=== PATIENT | male | born 1945 | race Caucasian/White ===

== ENCOUNTER 2019-04-14 01:58 | Inpatient (IN) ==
[2019-04-14] MEDS ORDERED: FAMOTIDINE 20MG/5ML IV PUSH IV STA (02:36)
[2019-04-14] MEDS ORDERED: ONDANSETRON INJ 2 MG/ML 2 ML VIAL IV STA (02:36)
[2019-04-14] MEDS ORDERED: fentaNYL citrate 100 MCG/2 ML VIAL IV PRN (02:36)
[2019-04-14] MEDS: SODIUM CHLORIDE 0.9% 1000ML 1,000 ML IV SCH ×3 (02:43→20:12)
[2019-04-14 02:52] LABS: Basophils # (auto) 0.01 K/uL (0-0.2); Basophils % (auto) 0.1 %; Eosinophils # (auto) 0.07 K/uL (0-0.5); Eosinophils % (auto) 0.7 %; Hematocrit (blood only) 43.2 % (42-52); Hemoglobin 14.9 g/dL (14.0-18.0); Immature Granulocytes # (auto) 0.02 K/uL (0.00-0.02); Immature Granulocytes % (auto) 0.2 %; Lymphocytes # (auto) 1.39 K/uL (1.2-3.4); Lymphocytes % (auto) 13.2 %; Mean Corpuscular Hgb Conc 34.5 g/dL (32-36); Mean Corpuscular Volume 84.2 fL (80-100); Monocytes # (auto) 0.47 K/uL (0.11-0.59); Monocytes % (auto) 4.5 %; Neutrophils # (auto) 8.56 K/uL (1.4-6.5); Neutrophils % (auto) 81.3 %; Platelet Count 161 K/uL (130-400); RDW Coefficient of Variation 13.4 % (11.5-14.5); RDW Standard Deviation 41.1 fL (36.4-46.3); Red Blood Count 5.13 M/uL (4.7-6.1); White Blood Count 10.52 K/uL (4.8-10.8)
[2019-04-14 03:00] LABS: Alanine Aminotransferase 27 U/L (12-78); Albumin Level 4.6 gm/dl (3.4-5.0); Aspartate Aminotransferase 21 U/L (15-37); BUN Creatinine Ratio 15.6 (10-20); Blood Urea Nitrogen 15 mg/dl (7-18); Calcium 9.3 mg/dl (8.5-10.1); Carbon Dioxide 34 mmol/L (21-32); Chloride 99 mmol/L (98-107); Creatinine Clr Calc Pharmacy 71.4 ml/min; Est GFR (African American) 87.7; Est GFR (Non-African American) 75.6; Glucose 224 mg/dl (70-99); Lipase 140 U/L (73-393); Magnesium 2.1 mg/dl (1.8-2.4); Potassium 3.6 mmol/L (3.5-5.1); Sodium 138 mmol/L (136-145)
[2019-04-14 03:05] LABS: Albumin Globulin Ratio 1.3 (0.9-2); Alkaline Phosphatase 97 U/L (45-117); Bilirubin,Total 1.2 mg/dl (0.2-1); Globulin 3.6 gm/dl (2.5-4.0); Total Protein 8.2 gm/dl (6.4-8.2); Troponin I < 0.015 ng/ml (0-0.045)
[2019-04-14] MEDS ORDERED: IOVERSOL 100ml IV PRN (03:43)
[2019-04-14] MEDS ORDERED: HydrALAZINE HCL 20 MG/ML VIAL IV STA (03:51)
[2019-04-14] MEDS ORDERED: MoRPHine SULFATE 4 MG/ML 1 ML CARP\\VIAL IV STA (06:37)
--- NOTE | 2019-04-14 06:45 | Emergency Department Note ---
Entered by Paulina Poole acting as a scribe for History of Present Illness General Chief complaint: Abdominal Pain Stated complaint: ABD PAIN, BACK PAIN Time Seen by Provider: 04/14/19 02:07 History of Present Illness Provider complaint: abdominal pain Onset (ago): hour(s) 8 Location: abdomen Radiation: back Pain Consistency: + constant Maximum Pain Intensity: 6 Quality: + other (abdominal pain) Relieved By: not by medication (Tums) Exacerbated By: + none Associated symptoms: + other (Positive hard bowel movements; postive bloated sensation; positive sour taste); no chest pain and no fever/chills Treatments prior to arrival: other (TUMS) The patient, who is a 73 year old male with a medical history of dyslipidemia, UGI bleed, and type 2 diabetes, presents to the Emergency Room with complaints of an episode of abdominal pain that started at 1700. The patient expresses that this pain is constant and radiates to his back. The patient explains that he did not feel better or worse when he was resting or sitting up. The patient reports having hard bowel movements but denies any other irregular bowel symptoms. No black or bloody stools. The patient states that prior to arrival he had a sour taste in his mouth. The patient expresses that he had a dosage of TUMS however this did not help. The patient denies chest pain and shortness of breath. The patient denies eating strange foods or a change in his medication. The patient states that he had a stomach ulcer 10 years ago but has not had a scope in years. Denies any recent increase in reflux/GERD symptoms. The patient denies taking any current medication for this. The patient states that he is on aspirin. No other anticoagulation. Patient denies paresthesias in arms or legs. No fevers or chills. No recent illness. Home Medications Home Medications Medication Instructions Recorded Confirmed Type Lantus Solostar U-100 Insulin 24 units SUBCUT BID 04/14/19 04/14/19 History alprazolam 0.25 mg PO TID PRN 04/14/19 04/14/19 History aspirin 81 mg PO DAILY 04/14/19 04/14/19 History carvedilol 25 mg PO BID 04/14/19 04/14/19 History clonidine HCl 0.1 mg PO Q6H PRN 04/14/19 04/14/19 History insulin aspart U-100 [Novolog 5 unit SUBCUT BID 04/14/19 04/14/19 History Flexpen U-100 Insulin] lisinopril-hydrochlorothiazide 2 tab PO DAILY 04/14/19 04/14/19 History potassium chloride 10 meq PO DAILY 04/14/19 04/14/19 History rosuvastatin 20 mg PO HS 04/14/19 04/14/19 History terazosin 5 mg PO DAILY 04/14/19 04/14/19 History Allergies Allergy/AdvReac Type Severity Reaction Status Date / Time No Known Allergies Allergy Unverified 04/14/19 02:29 Past Med/Surg History Medical History Abdominal pain (Acute) Acute cholecystitis (Acute) Bradyarrhythmia (Acute) Hypertensive heart disease (Chronic) Dyslipidemia (Chronic) Paroxysmal atrial tachycardia (Chronic) UGI bleed (Resolved) "Dieulafoy lesion of stomach" Diabetes mellitus, type 2 (Chronic) Paroxysmal ventricular tachycardia (Chronic) Patient is Spiritism (Chronic) "no blood products" Hypertension (Acute) Surgical History Status post cardiac pacemaker procedure (Chronic) "dual chamber pacemaker 03/09/16" Social History Preferred Language: Ukrainian Beliefs That Will Affect Care: Mandaen Mandaen Beliefs: jehovahs witness Current Living Situation: Spouse Other Information That Helps Us Care for You: No Feels Safe at Home: Yes Safety Concerns: Feels Safe At This Time Smoking Status: Never smoker Hx Alcohol Use: No Hx Substance Use: No Review of Systems See HPI for pertinent positives & negatives. and A total of 10 systems reviewed and were otherwise negative Physical Exam Vital Signs Vital Signs - 24 hr 04/14/19 03:38 04/14/19 04:10 04/14/19 04:22 Pulse Rate [Right] 65 61 75 Pulse Rhythm [Right] Pulse Strength [Right] Respiratory Rate 20 16 16 Respiratory Effort / Characteristics Non-Labored Spontaneous Non-Labored Respiratory Depth Normal Normal Normal Blood Pressure [Left Arm] 218/92 H 212/85 H 194/84 H Blood Pressure Mean [Left Arm] 134 127 120 Blood Pressure Position [Left Arm] Sitting Pulse Oximetry 98 97 97 Oxygen Delivery Method Room Air Room Air 04/14/19 04:43 04/14/19 05:36 04/14/19 06:07 Pulse Rate [Right] 71 75 78 Pulse Rhythm [Right] Regular Regular Pulse Strength [Right] Normal Normal Respiratory Rate 16 16 16 Respiratory Effort / Characteristics Non-Labored Spontaneous Non-Labored Spontaneous Non-Labored Spontaneous Respiratory Depth Normal Normal Normal Blood Pressure [Left Arm] 182/78 H 193/78 H 191/80 H Blood Pressure Mean [Left Arm] 112 116 117 Blood Pressure Position [Left Arm] Sitting Sitting Pulse Oximetry 98 97 97 Oxygen Delivery Method Room Air Room Air Room Air 04/14/19 07:02 Pulse Rate [Right] 76 Pulse Rhythm [Right] Pulse Strength [Right] Respiratory Rate 18 Respiratory Effort / Characteristics Non-Labored Spontaneous Respiratory Depth Normal Blood Pressure [Left Arm] 176/82 H Blood Pressure Mean [Left Arm] 113 Blood Pressure Position [Left Arm] Lying Pulse Oximetry 96 Oxygen Delivery Method Room Air GENERAL: alert, well appearing, well nourished, no distress, non-toxic EYE EXAM: normal conjunctiva, PERRL and EOM's grossly intact OROPHARYNX: no exudate, no erythema, lips, buccal mucosa, and tongue normal and mucous membranes are moist NECK: supple, no nuchal rigidity, no adenopathy, non-tender LUNGS: Clear to auscultation. Normal chest wall mechanics, no w/r/r HEART: no murmurs, S1 normal and S2 normal ABDOMEN: abdomen soft, non-tender, normo-active bowel sounds, no masses, no rebound or guarding. Mild discomfort to the epigastric with palpation, dull to percussion BACK: Back is symmetrical on inspection and there is no deformity, no midline tenderness, no CVA tenderness. SKIN: no rashes and no bruising UPPER EXTREMITIES: upper extremities are grossly normal. FROM, nml pulses b/l. LOWER EXTREMITIES: No pitting edema. FROM, nml pulses b/l. NEURO EXAM: Normal sensorium, cranial nerves II-XII grossly intact, normal speech, no gross weakness of arms, no gross weakness of legs. Course 0226: Past medical records reviewed. The patient was evaluated in room A10. A complete history and physical exam was performed. 0451: I reassessed the patient and updated him on his CT. I am waiting for his ultrasound results. 0635: I reassessed the patient who states that pain is present but improved. 0700: I discussed the case with Dr. Mcclure. He requests that the patient be admitted by the hospitalist and he will see in consult for surgery. 0712: I reviewed the patient's case with Malini Torres Hospitalist. He will evaluate the patient for further management. 0724: I reassessed the patient who agrees to be further evaluated by the hospitalist. Consultations Time: 07:00 Consultation #2: I reviewed the patient's case with Dr. Mcclure, general surgery. Time: 07:12 Administered Medications Alprazolam (Xanax) 0.25 mg PO TID PRN PRN Reason: Anxiety Stop: 05/14/19 16:40 Last Admin: 04/14/19 17:16 Dose: 0.25 mg Documented by: [id number] Carvedilol (Coreg) 25 mg PO BID DAVE Stop: 05/14/19 09:15 Last Admin: 04/14/19 21:19 Dose: 25 mg Documented by: [id number] Admin: 04/14/19 10:00 Dose: 25 mg Documented by: [id number] Lisinopril/HCTZ (Prinzide 20/12.5mg) 2 tab PO DAILY DAVE Stop: 05/14/19 09:15 Last Admin: 04/14/19 09:59 Dose: 2 tab Documented by: [id number] Sodium Chloride (Nss 1000ml) 1,000 mls @ 125 mls/hr IV .Q8H DAVE Stop: 05/14/19 02:44 Last Admin: 04/14/19 20:12 Dose: 125 mls/hr Documented by: [id number] Infusion: 04/14/19 17:42 Dose: 125 mls/hr Documented by: [id number] Admin: 04/14/19 09:42 Dose: 125 mls/hr Documented by: [id number] Infusion: 04/14/19 08:04 Dose: 0 mls/hr Documented by: [id number] Admin: 04/14/19 02:43 Dose: 125 mls/hr Documented by: [id number] Insulin Aspart (Novolog Flexpen) 0 units SC Q6 DAVE; Protocol Stop: 05/14/19 11:59 Last Admin: 04/15/19 00:45 Dose: Not Given Documented by: [id number] Cosigned by: [id number] Admin: 04/14/19 17:53 Dose: 5 units Documented by: [id number] Cosigned by: [id number] Admin: 04/14/19 12:12 Dose: 4 units Documented by: [id number] Cosigned by: [id number] Ioversol (Optiray 320 100ml) 100 ml IV ONCE PRN PRN Reason: Interaction Checking Stop: 04/18/19 03:42 Last Admin: 04/14/19 03:43 Dose: 93 ml Documented by: [id number] Potassium Chloride (Klor-Con M10) 10 meq PO DAILY DAVE Stop: 05/14/19 09:15 Last Admin: 04/14/19 10:00 Dose: 10 meq Documented by: [id number] Rosuvastatin Calcium (Crestor) 20 mg PO HS DAVE Stop: 05/14/19 20:59 Last Admin: 04/14/19 21:19 Dose: 20 mg Documented by: [id number] Terazosin HCl (Hytrin) 5 mg PO DAILY DAVE Stop: 05/14/19 09:15 Last Admin: 04/14/19 10:00 Dose: 5 mg Documented by: [id number] Discontinued Medications Famotidine (Pepcid 20mg Iv Push) 20 mg IV ONE STA Stop: 04/14/19 02:37 Last Admin: 04/14/19 02:42 Dose: 20 mg Documented by: [id number] Fentanyl Citrate (Fentanyl Citrate) 50 mcg IV Q15M PRN PRN Reason: Pain Stop: 04/28/19 02:35 Last Admin: 04/14/19 02:42 Dose: 100 mcg Documented by: [id number] Hydralazine HCl (Hydralazine Hcl) 10 mg IV NOW STA Stop: 04/14/19 03:52 Last Admin: 04/14/19 04:10 Dose: 10 mg Documented by: [id number] Potassium Chloride (K Britton / Wtr) 10 meq in 100 mls @ 100 mls/hr IV Q1H DAVE Stop: 04/14/19 11:15 Last Infusion: 04/14/19 12:21 Dose: 0 mls/hr Documented by: [id number] Admin: 04/14/19 10:58 Dose: 100 mls/hr Documented by: [id number] Infusion: 04/14/19 10:58 Dose: 100 mls/hr Documented by: [id number] Admin: 04/14/19 09:58 Dose: 100 mls/hr Documented by: [id number] Sincalide 1.8 mcg/ Sodium (Chloride) 101.8 mls @ 200 mls/hr IV TODAY@1400 DAVE Stop: 04/14/19 20:00 Last Admin: 04/14/19 15:16 Dose: Not Given Documented by: [id number] Insulin Aspart (Novolog Flexpen) 0 units SC 0940 ONE; Protocol Stop: 04/14/19 09:41 Last Admin: 04/14/19 09:53 Dose: Not Given Documented by: [id number] Cosigned by: [id number] Insulin Glargine (Lantus Solostar Pen) 25 units SC NOW ONE Stop: 04/14/19 11:31 Last Admin: 04/14/19 12:15 Dose: 25 units Documented by: [id number] Cosigned by: [id number] Insulin Glargine (Lantus Solostar Pen) 0 units SC HS ONE; Protocol Stop: 04/14/19 21:01 Last Admin: 04/14/19 21:20 Dose: 10 units Documented by: [id number] Cosigned by: [id number] Morphine Sulfate (Morphine Sulfate) 4 mg IV NOW STA Stop: 04/14/19 06:38 Last Admin: 04/14/19 06:40 Dose: 4 mg Documented by: [id number] Morphine Sulfate (Morphine Sulfate) Confirm Administered Dose 2 mg .ROUTE .STK- MED ONE Stop: 04/14/19 14:18 Last Admin: 04/14/19 15:15 Dose: Not Given Documented by: [id number] Ondansetron HCl (Zofran) 4 mg IV NOW STA Stop: 04/14/19 02:37 Last Admin: 04/14/19 02:42 Dose: 4 mg Documented by: [id number] Medical Decision Making Differential Diagnosis Differential diagnosis includes: appendicitis, diverticulitis, PUD, biliary pathology, UTI, pancreatitis, obstruction, mesenteric ischemia, aortic pathology, infections, inflammatory bowel disease, renal colic, as well as others were entertained. Medical Records Attestation: I reviewed the patient's medical records. Home Medications Current Medication List: was personally reviewed by me Laboratory Data Attestation: I reviewed the patient's lab results. Result diagrams: 04/14/19 02:10 08/27/19 02:10 Lab Results 04/14/19 04/14/19 04/14/19 Range/Units 02:10 02:10 02:46 WBC 10.52 (4.8-10.8) K/uL RBC 5.13 (4.7-6.1) M/uL Hgb 14.9 (14.0-18.0) g/dL Hct 43.2 (42-52) % MCV 84.2 (80-100) fL MCH 29.0 (25-34) pg MCHC 34.5 (32-36) g/dL RDW Std Deviation 41.1 (36.4-46.3) fL RDW Coeff of Drake 13.4 (11.5-14.5) % Plt Count 161 (130-400) K/uL MPV 10.0 (7.4-10.4) fL Immature Gran % (Auto) 0.2 % Neut % (Auto) 81.3 % Lymph % (Auto) 13.2 % [place] % (Auto) 4.5 % Eos % (Auto) 0.7 % Baso % (Auto) 0.1 % Immature Gran # (Auto) 0.02 (0.00-0.02) K/uL Neut # (Auto) 8.56 H (1.4-6.5) K/uL Lymph # (Auto) 1.39 (1.2-3.4) K/uL [place] # (Auto) 0.47 (0.11-0.59) K/uL Eos # (Auto) 0.07 (0-0.5) K/uL Baso # (Auto) 0.01 (0-0.2) K/uL Sodium 138 (136-145) mmol/L Potassium 3.6 (3.5-5.1) mmol/L Chloride 99 (98-107) mmol/L Carbon Dioxide 34 H (21-32) mmol/L Anion Gap 5.0 (3-11) BUN 15 (7-18) mg/dl Creatinine 0.98 (0.6-1.4) mg/dl Est Cr Clr Drug Dosing 71.4 ml/min Est GFR ( Amer) 87.7 Est GFR (Non-Af Amer) 75.6 BUN/Creatinine Ratio 15.6 (10-20) Glucose 224 H (70-99) mg/dl POC Lactic Acid Jonathan 0.94 (0.90-1.70) mmol/L Calcium 9.3 (8.5-10.1) mg/dl Magnesium 2.1 (1.8-2.4) mg/dl Total Bilirubin 1.2 H (0.2-1) mg/dl AST 21 (15-37) U/L ALT 27 (12-78) U/L Alkaline Phosphatase 97 (45-117) U/L Troponin I < 0.015 (0-0.045) ng/ml Total Protein 8.2 (6.4-8.2) gm/dl Albumin 4.6 (3.4-5.0) gm/dl Globulin 3.6 (2.5-4.0) gm/dl Albumin/Globulin Ratio 1.3 (0.9-2) Lipase 140 (73-393) U/L Imaging Data Radiologist's Impression: Radiology results as stated below per my review and the radiologist's interpretation: CT ABDOMEN & PELVIS With Contrast: The esophagus is distended with fluid with a chest gastroesophageal reflux. Mild mucosal enhancement and wall thickening of the distal esophagus suggests esophagitis. The gallbladder is normal in distention but demonstrates multiple gallstones with surrounding fat stranding which could represent acute cholecystitis. Recommend correlation right upper quadrant pain and consider HIDA scan or ultrasound. No biliary dilatation. prostatomegaly Diverticulosis of the sigmoid and descending colon without diverticulitis. No bowel wall thickening or obstruction. Normal appendix. Radiologist: José Miguel Garcia MD Study ready at 04:06 and initial results transmitted at 04:44 US RUQ: Cholelithiasis with wall thickening consistent with acute cholecystitis. No ndilated CBD. Radiology: Edgar Alonzo MD Study ready at 05:37 and initial resust transmitted at 06:30. ECG Data Attestation: I personally reviewed and interpreted this ECG as follows: Indication: abdominal pain Rate (beats per minute): 91 Rhythm: other (paced) Findings: + other (Normal QRS; Normal QTC) and + left axis deviation; no acute ischemic change Blood Pressure Blood Pressure Findings: Elevated blood pressure Blood Pressure Disposition: further management by hospitalist YAQUELIN Narrative Patient here well-appearing despite complaints. Patient did receive medication for pain as well as for his hypertension that was noted here. Patient states this is related to being at the hospital and happens when he goes to the doctor's office as well. Patient's labs reassuring, however CT revealed cholelithiasis and additional ultrasound revealed findings suggestive of acute cholecystitis. No evidence of choledocholithiasis, pancreatitis, or ascending cholangitis. No evidence of bacteremia/sepsis. Patient otherwise hemodynamically stable and afebrile in the emergency room. Case discussed with general surgery on-call who requested patient be admitted by the hospitalist for additional medical management and general surgery will see in consultation. Patient was made aware of all results. Both the hospitalist and surgeon were made aware that the patient is a Spiritism. Patient's H&H currently stable. Patient is not anticoagulated, however does take aspirin daily. Impression & Plan Abdominal pain, Acute cholecystitis, Hypertension Discharge Plan Visit Data *Final* Discharge Date/Time: 04/14/19 08:42 Chief Complaint: Abdominal Pain Stated Complaint: ABD PAIN, BACK PAIN ED Provider: Aida Carpio Discharge Problem: Abdominal pain, Acute cholecystitis, Hypertension Patient Disposition: Admitted As Inpatient Condition: Good Discharge Instructions Interventions: ED Discharge Assessment Last Done: 04/14/19 08:42 Discharge Problem: Abdominal pain Qualifiers: Abdominal location: upper abdomen, unspecified Qualified Code(s): R10.10 - Upper abdominal pain, unspecified Hypertension Qualifiers: Hypertension type: essential hypertension Qualified Code(s): I10 - Essential (primary) hypertension The scribe's documentation has been prepared under my direction and personally reviewed by me in its entirety. I confirm that the note above accurately reflects all work, treatment, procedures, and medical decision making performed by me.
--- NOTE | 2019-04-14 07:37 | Ultrasound Report ---
ABDOMINAL ULTRASOUND, RIGHT UPPER QUADRANT HISTORY: epigastric pain. COMPARISON: Abdominal ultrasound 01/14/2018. FINDINGS: Pancreas: The pancreatic head and tail are obscured by overlying bowel gas. The remaining portions of the pancreas are within normal limits. Liver: Unremarkable. Gallbladder: There is gallbladder wall thickening measuring between 4 and 7 mm most pronounced at the fundus. Multiple stones are again identified within the gallbladder. CBD: 5 mm. Right kidney: No hydronephrosis. IMPRESSION: Cholelithiasis with gallbladder wall thickening. Therefore, these findings likely represent with acut e cholecystitis. Electronically signed by: Julisu Patel M.D. 04/14/2019 7:36 AM
--- NOTE | 2019-04-14 07:39 | History & Physical Report ---
Date of Service April 14, 2019 Assessment & Plan (1) Acute cholecystitis: (2) Abdominal pain: (3) Hypertensive heart disease: (4) Dyslipidemia: (5) Diabetes mellitus, type 2: (6) Status post cardiac pacemaker procedure: (7) Patient is Voodoo: Med/Surg, Gen Surgery and Cards to see, SSI, NPO except BP Meds, No SC Heparin for possible surgery, Pre-op eval, Monitor Daily labs, HIDA ROS-No Headache, No Visual Changes, No Nausea, No Vomiting, No Fever, No Chills, No Neck Pain or Stiffness, No Chest Pain, No Palpitations, No SOB, No DOWNING, No Cough, No Sputum, No Wheezing, + Abdominal Pain epigastric, radiating into his back, No Diarrhea, No Hematemesis, No Hemoptysis, No Unexpected Weight Loss, No Flank pain, No Melena, No Hematochezia, No Frequency, No Urgency, No Burning, No Hematuria, No Rashes, No Diaphoresis. Appetite is Normal Physical Exam Gen-AAO x 3, NAD, Afebrile, Obese, Poor dentition Head-NCAT, EOMI, PERRLA, Anicteric Sclera, No Posterior Pharyngeal Erythema Neck-Supple, No JVD, No Thyromegaly, No Masses, No LAD, No Bruits Lungs-Clear to Auscultation Bilaterally, No Rales, No Rhonchi, No Wheezing, No Crepitus Chest-No S4, +S1, +S2, No S3, No Murmurs, No Rubs, No Gallops, No Ectopy Abdomen-Soft, Bowel Sounds Present, Tender, Non Distended, No Hepatomegaly, No Splenomegaly, No Palpable Masses, No Rebound, No Rigidity, No Guarding Musculoskeletal-Full Range of Motion Bilaterally, No CVAT Extremities-No Cyanosis, No Clubbing, No Edema Nuero-Cranial Nerves II-XII grossly intact, Motor WNL, DTRs WNL, Strength WNL, Non Focal Psych-Normal Mood History of Present Illness 73 yo male c PMH UGI Bleed, Pacer, Vtach, Atrial Tach, HTN, HLD, DM II, and HTN presents to ER this AM c epigastric that started yesterday at 1700. Abd pain. The pain is constant and radiates to his back. The patient explains that he did not feel better or worse when he was resting or sitting up. The patient reports having TUMS however this did not help. The patient denies chest pain and shortness of breath. The patient denies eating strange foods or a change in his medication. The patient states that he had a stomach ulcer 10 years ago but has not had a scope in years. Dr Mcclure was consulted from the ER and I will have Cards come by for a pre-op eval. 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 Primary Care Provider: Srini Hinkle MD Allergies Allergy/AdvReac Type Severity Reaction Status Date / Time No Known Allergies Allergy Unverified 04/14/19 02:29 Home Medications Home Medications Medication Instructions Recorded Confirmed Type alprazolam 0.25 mg PO TID PRN 04/14/19 04/14/19 History aspirin 81 mg PO DAILY 04/14/19 04/14/19 History carvedilol 25 mg PO BID 04/14/19 04/14/19 History clonidine HCl 0.1 mg PO Q6H PRN 04/14/19 04/14/19 History lisinopril-hydrochlorothiazide 2 tab PO DAILY 04/14/19 04/14/19 History potassium chloride 10 meq PO DAILY 04/14/19 04/14/19 History rosuvastatin 20 mg PO HS 04/14/19 04/14/19 History terazosin 5 mg PO DAILY 04/14/19 04/14/19 History Past Med/Surg History Medical History Bradyarrhythmia (Acute) Hypertensive heart disease (Chronic) Dyslipidemia (Chronic) Paroxysmal atrial tachycardia (Chronic) UGI bleed (Resolved) "Dieulafoy lesion of stomach" Diabetes mellitus, type 2 (Chronic) Paroxysmal ventricular tachycardia (Chronic) Patient is Voodoo (Chronic) "no blood products" Hypertension (Acute) Surgical History Status post cardiac pacemaker procedure (Chronic) "dual chamber pacemaker 03/09/16" Social History Preferred Language: Kyrgyz Feels Safe at Home: Yes Smoking Status: Never smoker Results & Data Vital Signs (Past 12 Hours) Vital Signs Temp Pulse Pulse Resp BP BP Pulse Ox 04/14/19 07:02 76 18 176/82 H 96 04/14/19 06:07 78 16 191/80 H 97 04/14/19 05:36 75 16 193/78 H 97 04/14/19 04:43 71 16 182/78 H 98 04/14/19 04:22 75 16 194/84 H 97 04/14/19 04:10 61 16 212/85 H 97 04/14/19 03:38 65 20 218/92 H 98 04/14/19 02:01 36.5 C 87 18 228/94 H 98 Allergies No Known Allergies Allergy (Unverified 04/14/19 02:29) Height/Weight/Isolation Height 5 ft 8 in Weight 88.2 kg CBC 04/14/19 04/14/19 04/14/19 02:10 02:10 02:46 WBC 10.52 RBC 5.13 Hgb 14.9 Hct 43.2 MCV 84.2 MCH 29.0 MCHC 34.5 RDW Std Deviation 41.1 RDW Coeff of Drake 13.4 Plt Count 161 MPV 10.0 Immature Gran % (Auto) 0.2 Neut % (Auto) 81.3 Lymph % (Auto) 13.2 [place] % (Auto) 4.5 Eos % (Auto) 0.7 Baso % (Auto) 0.1 Immature Gran # (Auto) 0.02 Neut # (Auto) 8.56 H Lymph # (Auto) 1.39 [place] # (Auto) 0.47 Eos # (Auto) 0.07 Baso # (Auto) 0.01 Sodium 138 Potassium 3.6 Chloride 99 Carbon Dioxide 34 H Anion Gap 5.0 BUN 15 Creatinine 0.98 Est Cr Clr Drug Dosing 71.4 Est GFR ( Amer) 87.7 Est GFR (Non-Af Amer) 75.6 BUN/Creatinine Ratio 15.6 Glucose 224 H POC Lactic Acid Jonathan 0.94 Calcium 9.3 Magnesium 2.1 Total Bilirubin 1.2 H AST 21 ALT 27 Alkaline Phosphatase 97 Troponin I < 0.015 Total Protein 8.2 Albumin 4.6 Globulin 3.6 Albumin/Globulin Ratio 1.3 Lipase 140 Chemistry 04/14/19 02:10 Sodium 138 Potassium 3.6 Chloride 99 Carbon Dioxide 34 H Anion Gap 5.0 BUN 15 Creatinine 0.98 Glucose 224 H Code Status & VTE Plan VTE Prophylaxis Plan VTE Prophylaxis will be ordered: No (1) Abdominal pain Abdominal location: upper abdomen, unspecified Qualified Code(s): R10.10 - Upper abdominal pain, unspecified
--- NOTE | 2019-04-14 07:47 | CT Scan Report ---
CT OF THE ABDOMEN AND PELVIS WITH CONTRAST CLINICAL HISTORY: Epigastric pain. COMPARISON STUDY: CT of the abdomen and pelvis January 14, 2018. TECHNIQUE: Following IV administration of 93 mL of Optiray-320, axial images of the abdomen and pelvi s were obtained from the lung bases to the proximal femurs. Images were reviewed in the axial, sagitt al, and coronal planes. IV contrast was administered without complication. Automated exposure contro l was utilized for the study. A dose lowering technique was utilized adhering to the principles of A IVORY. CT DOSE: 674.54 mGy.cm FINDINGS: Stomach is mildly distended. There is fluid within distal esophagus. The liver, adrenal gla nds and pancreas are unremarkable as is the pancreas. There are granulomas within the spleen. The gal lbladder is not distended however there is mild wall thickening with adjacent infiltration. There are multiple gallstones within the gallbladder. There is no peripancreatic infiltration. Caliber and wal l thickness of small and large bowel are normal. There is extensive sigmoid diverticulosis without ev idence for acute diverticulitis. There is no free air or abscess. Prostate is moderately enlarged. Th ere is no lymphadenopathy. There are no suspicious osseous lesions. Suspected sebaceous cyst within t he midline of the lower back is noted. IMPRESSION: 1. Cholelithiasis with mild gallbladder wall thickening and adjacent infiltration. Although nondisten ded, the findings raise the possibility of acute cholecystitis. Findings could be correlated with rig ht upper quadrant ultrasound. 2. Extensive colonic diverticulosis without evidence for acute diverticulitis. Electronically signed by: Noel Park M.D. 04/14/2019 7:46 AM
[2019-04-14] MEDS ORDERED: GLUCOSE 10 TABS/TUBE PO PRN (09:16)
[2019-04-14] MEDS ORDERED: DEXTROSE 50% 50 ML SYRINGE IV PRN (09:16)
[2019-04-14] MEDS ORDERED: ONDANSETRON INJ 2 MG/ML 2 ML VIAL IV PRN (09:16)
[2019-04-14] MEDS ORDERED: MoRPHine SULFATE 4 MG/ML 1 ML CARP\\VIAL IV PRN (09:16)
[2019-04-14] MEDS ORDERED: GLUCOSE 40% GEL 15 GM TUBE PO PRN (09:16)
[2019-04-14] MEDS ORDERED: LORazepam 0.5 MG/1 ML VIAL IV PRN (09:16)
[2019-04-14] MEDS ORDERED: GLUCAGON FOR INJ 1 MG VIAL SQ PRN (09:16)
[2019-04-14] MEDS ORDERED: POLYETHYLENE (MIRALAX) 17 GM PACK PO PRN (09:16)
[2019-04-14] MEDS ORDERED: CARBOHYDRATES FOR HYPOGLYCEMIA PO PRN (09:16)
[2019-04-14] MEDS ORDERED: ALUMINUM/MAGNESIUM SUSP 30 ML UDC PO PRN (09:16)
[2019-04-14] MEDS ORDERED: PHARMACY GLYCEMIC MGMT CONSULT PRN (09:23)
[2019-04-14] MEDS ORDERED: INSULIN ASPART 100 UNITS/ML 3 ML PEN SC ONE (09:40)
--- NOTE | 2019-04-14 09:44 | Pharmacy Report ---
Glycemic Control Consultation - Date of Service April 14, 2019 - Scope Scope: Glycemic Pharmacist consulted by Dr Torres on 04/14/19 for glycemic control and to write orders per [facility] inpatient glycemic control protocol - Objective Weight: 88.2 kg Accuchecks BSG (last 24hrs): 04/14/19 02:10 Glucose 224 H Laboratory Data (last 24hrs): 04/14/19 02:10 Potassium 3.6 Carbon Dioxide 34 H Anion Gap 5.0 Creatinine 0.98 Est Cr Clr Drug Dosing 71.4 - Recent Pertinent Medications Outpatient Anti-diabetic Regimen: * Lantus 24 units BID, Novolog 5 SQ BID - TID * A1c = 8.7 % [03/09/16] Risk Factors for Insulin Resistance: * Diet: NPO - Assessment & Plan Assessment & Plan: ASSESSMENT: * 73 year old admitted with possible acute cholecystitis. Surgery consulted. PMHx significant for htn, hld, s/p pacemaker, T2DM * Last A1C 8.7 in 2016 - updated medication list as no insulin was originally on list * Patient not sure if he took his Lantus yesterday as he was not feeling well * Fasting BSG this am 224 mg/dL - likely related to missed basal doses * Patient will be NPO for surgery tomorrow, will give full Lantus dose now and use reduced dosing for this evening. Basal makes up more than ~50% of total insulin at home, so hesitant to give full doses even if on diet * Spoke with nurse, patient going for scan this morning - may be on diet for dinner, but will return to NPO at midnight PLAN FOR INPATIENT GLYCEMIC CONTROL: * Basal insulin * Lantus 25 x 1 this morning * Lantus Hs per scale -Lantus 5 units if BSG <140 -Lantus 10 units if BSG 140-200 -Lantus 15 units if BSG >200 * Bolus insulin * NovoLog per scale ACHS or Q6hrs while NPO * Goal Range: Low 110 mg/dL - High 140 mg/dL * Correction Factor: 20 mg/dL/unit * Nutritional / Prandial insulin per carb ratio of 1 unit per 7 grams CHO consumed * Please note that the plan above was derived based on current level of insulin resistance and hospital stress. These recommendations are appropriate for inpatient admission only. Plan of care upon discharge will need to be reassessed to avoid potential outpatient hypo/hyperglycemia. Thank you.
[2019-04-14] MEDS: POTASSIUM CHLORIDE / WTR 10 MEQ/100 ML PLCT IV SCH ×2 (09:58→10:58)
[2019-04-14] MEDS: LISINOPRIL/HCTZ 20/12.5MG 1 TAB TAB PO SCH (09:59)
[2019-04-14] MEDS: CARVEDILOL 25 MG TAB PO SCH ×2 (10:00→21:19)
[2019-04-14] MEDS: TERAZOSIN HCL 5 MG CAP PO SCH (10:00)
[2019-04-14] MEDS: POTASSIUM CHLORIDE 10 MEQ TABCR PO SCH (10:00)
--- NOTE | 2019-04-14 10:01 | Surgery Consultation ---
Date of Consultation April 14, 2019 Assessment & Plan (1) Abdominal pain: pt is a 73 year - old male who presents to ER with one day history acuy=te abdominal pain, CT scan, U/S study- acute cholecystitis, with cholelithiasis, IMP: acute cholecystitis, cholelithiasis, Plan, agree with hospitalist plan, data control clerk consult for pre-op cardiac clearance, HIDA scan, I recommend to do laparoscopic cholecystectomy tomorrow, D/W benefits, risks and alternatives of the surgery, the risks - infection, bleeding, injury CBD, may need ERCP, IA, DVT, stroke, , pt and his understood, they agree with the surgery,I answered all questions, repeat labs in am, CBC, CMP, (2) Acute cholecystitis: History of Present Illness Attending Physician: Scout Torres DO pt is a 73 year-old male who was admitted to hospital for acute cholecystitis, I reviewed pt 's H/P with pt and his . pt start have abdominal pain with back pain early this morning, the pain is located at RUQ and back, pt denies nausea, no vomiting, pt came to ER , pt had CT scan and U/S study- acute cholecystitis, pt's PMH-PMH UGI Bleed, Pacer, Vtach, Atrial Tach, HTN, HLD, DM II, and HTN . pt denies any chest pain, pt had pacemaker insertion 2 years ago. Allergies Allergy/AdvReac Type Severity Reaction Status Date / Time No Known Allergies Allergy Unverified 04/14/19 02:29 Home Medications Home Medications Medication Instructions Recorded Confirmed Type alprazolam 0.25 mg PO TID PRN 04/14/19 04/14/19 History aspirin 81 mg PO DAILY 04/14/19 04/14/19 History carvedilol 25 mg PO BID 04/14/19 04/14/19 History clonidine HCl 0.1 mg PO Q6H PRN 04/14/19 04/14/19 History lisinopril-hydrochlorothiazide 2 tab PO DAILY 04/14/19 04/14/19 History potassium chloride 10 meq PO DAILY 04/14/19 04/14/19 History rosuvastatin 20 mg PO HS 04/14/19 04/14/19 History terazosin 5 mg PO DAILY 04/14/19 04/14/19 History Patient History Medical History Bradyarrhythmia (Acute) Hypertensive heart disease (Chronic) Dyslipidemia (Chronic) Paroxysmal atrial tachycardia (Chronic) UGI bleed (Resolved) "Dieulafoy lesion of stomach" Diabetes mellitus, type 2 (Chronic) Paroxysmal ventricular tachycardia (Chronic) Patient is Hoahaoism (Chronic) "no blood products" Hypertension (Acute) Surgical History Status post cardiac pacemaker procedure (Chronic) "dual chamber pacemaker 03/09/16" Social History Preferred Language: Hong Konger Beliefs That Will Affect Care: Temple Temple Beliefs: jehovahs witness Current Living Situation: Spouse Other Information That Helps Us Care for You: No Feels Safe at Home: Yes Safety Concerns: Feels Safe At This Time Smoking Status: Never smoker Hx Alcohol Use: No Hx Substance Use: No Review of Systems Review of Systems: All systems reviewed & are unremarkable except as noted in HPI & below Physical Exam Constitutional: WD/WN, vitals as above well developed and well nourished ENMT: external ear and nose normal, oropharynx normal Neck: trachea midline, no thyromegaly Respiratory: normal respiratory effort, lungs clear to auscultation normal respiratory effort Cardiovascular: RRR, no murmur, no edema Rate/Rhythm: regular rate and regular rhythm Heart Sounds: normal S1 and normal S2 Gastrointestinal (Abdomen): normal bowel sounds, soft, nontender, no hepatosp lenomegaly Percussion/Palpation: abdomen soft no signoficant tenderness at abdomen, no rebound pain, BS + Musculoskeletal: no cyanosis or clubbing, extremities motor strength 5/5 Neurologic: patellar DTR's 2+ bilat, sensation intact Psychiatric: A+Ox3, euthymic affect Orientation: alert and oriented x 3 Results & Data Vital Signs (Past 12 Hours) Vital Signs Temp Pulse Pulse Resp BP BP Pulse Ox 04/14/19 09:19 36.8 C 68 13 166/79 H 97 04/14/19 08:42 74 18 165/71 H 96 04/14/19 07:02 76 18 176/82 H 96 08/27/19 06:07 78 16 191/80 H 97 04/14/19 05:36 75 16 193/78 H 97 04/14/19 04:43 71 16 182/78 H 98 04/14/19 04:22 75 16 194/84 H 97 04/14/19 04:10 61 16 212/85 H 97 04/14/19 03:38 65 20 218/92 H 98 04/14/19 02:01 36.5 C 87 18 228/94 H 98 Laboratory Results Abnormal lab results 04/14/19 04/14/19 Range/Units 02:10 02:10 Neut # (Auto) 8.56 H (1.4-6.5) K/uL Carbon Dioxide 34 H (21-32) mmol/L Glucose 224 H (70-99) mg/dl Total Bilirubin 1.2 H (0.2-1) mg/dl Diagnostic Findings ABDOMINAL ULTRASOUND, RIGHT UPPER QUADRANT HISTORY: epigastric pain. COMPARISON: Abdominal ultrasound 01/14/2018. FINDINGS: Pancreas: The pancreatic head and tail are obscured by overlying bowel gas. The remaining portions of the pancreas are within normal limits. Liver: Unremarkable. Gallbladder: There is gallbladder wall thickening measuring between 4 and 7 mm most pronounced at the fundus. Multiple stones are again identified within the gallbladder. CBD: 5 mm. Right kidney: No hydronephrosis. IMPRESSION: Cholelithiasis with gallbladder wall thickening. Therefore, these findings likely represent with acute cholecystitis. CT OF THE ABDOMEN AND PELVIS WITH CONTRAST CLINICAL HISTORY: Epigastric pain. COMPARISON STUDY: CT of the abdomen and pelvis January 14, 2018. TECHNIQUE: Following IV administration of 93 mL of Optiray-320, axial images of the abdomen and pelvis were obtained from the lung bases to the proximal femurs. Images were reviewed in the axial, sagittal, and coronal planes. IV contrast was administered without complication. Automated exposure control was utilized for the study. A dose lowering technique was utilized adhering to the principles of ALARA. CT DOSE: 674.54 mGy.cm FINDINGS: Stomach is mildly distended. There is fluid within distal esophagus. The liver, adrenal glands and pancreas are unremarkable as is the pancreas. There are granulomas within the spleen. The gallbladder is not distended however there is mild wall thickening with adjacent infiltration. There are multiple gallstones within the gallbladder. There is no peripancreatic infiltration. Caliber and wall thickness of small and large bowel are normal. There is extensive sigmoid diverticulosis without evidence for acute diverticulitis. There is no free air or abscess. Prostate is moderately enlarged. There is no lymphadenopathy. There are no suspicious osseous lesions. Suspected sebaceous c yst within the midline of the lower back is noted. IMPRESSION: 1. Cholelithiasis with mild gallbladder wall thickening and adjacent infiltration. Although nondistended, the findings raise the possibility of acute cholecystitis. Findings could be correlated with right upper quadrant ultrasound. 2. Extensive colonic diverticulosis without evidence for acute diverticulitis. (1) Abdominal pain Abdominal location: upper abdomen, unspecified Qualified Code(s): R10.10 - Upper abdominal pain, unspecified
[2019-04-14] MEDS ORDERED: INSULIN GLARGINE SOLOSTAR 100 UNITS/ML 3 ML PEN SC ONE ×3 (11:15→21:00)
--- NOTE | 2019-04-14 11:50 | Cardiology Consultation ---
Date of Consultation April 14, 2019 Assessment & Plan (1) Preop cardiovascular exam: (2) Labile hypertension: (3) Pacemaker: (4) Acute cholecystitis: Recommendations: Patient is considered moderate perioperative risk for laparoscopic cholecystectomy. No further cardiac testing or intervention would lower his risk at this time. Continue to monitor blood pressure during hospitalization. Patient has history of labile hypertension and whitecoat hypertension. Consider addition of low-dose calcium channel cipriano therapy pending clinical course. Continue home cardiovascular medications including carvedilol, Hytrin, Zestoretic, and as needed clonidine. Thank you for allowing to participate in the care of your patient. History of Present Illness Reason for Consultation: Preop cardiovascular evaluation Requesting Physician: Dr. Torres Attending Physician: Scout Torres DO History of Present Illness 73-year-old patient presented to the emergency department with abdominal pain. Diagnosed with acute cholecystitis. 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 N.p.o. since admission. Abdominal pain has. Tentatively scheduled for cholecystectomy 04/15/2019. Patient denies chest discomfort or unusual shortness of breath. 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 Functional capacity is stable. No orthopnea, PND, lower extremity edema, claudication. Denies any palpitations, lightheadedness, dizziness, syncope, near syncope. No recurrent supraventricular tachycardia per most recent pacemaker interrogation 12/2018. Patient offers no complaints at this time. Allergies Allergy/AdvReac Type Severity Reaction Status Date / Time No Known Allergies Allergy Unverified 04/14/19 02:29 Home Medications Home Medications Medication Instructions Recorded Confirmed Type Lantus Solostar U-100 Insulin 24 units SUBCUT BID 04/14/19 04/14/19 History alprazolam 0.25 mg PO TID PRN 04/14/19 04/14/19 History aspirin 81 mg PO DAILY 04/14/19 04/14/19 History carvedilol 25 mg PO BID 04/14/19 04/14/19 History clonidine HCl 0.1 mg PO Q6H PRN 04/14/19 04/14/19 History insulin aspart U-100 [Novolog 5 unit SUBCUT BID 04/14/19 04/14/19 History Flexpen U-100 Insulin] lisinopril-hydrochlorothiazide 2 tab PO DAILY 04/14/19 04/14/19 History potassium chloride 10 meq PO DAILY 04/14/19 04/14/19 History rosuvastatin 20 mg PO HS 04/14/19 04/14/19 History terazosin 5 mg PO DAILY 04/14/19 04/14/19 History Patient History Medical History Abdominal pain (Acute) Acute cholecystitis (Acute) Bradyarrhythmia (Acute) Hypertensive heart disease (Chronic) Dyslipidemia (Chronic) Paroxysmal atrial tachycardia (Chronic) UGI bleed (Resolved) "Dieulafoy lesion of stomach" Diabetes mellitus, type 2 (Chronic) Paroxysmal ventricular tachycardia (Chronic) Patient is Zoroastrian (Chronic) "no blood products" Hypertension (Acute) Surgical History Status post cardiac pacemaker procedure (Chronic) "dual chamber pacemaker 03/09/16" Social History Preferred Language: Turkish Beliefs That Will Affect Care: Episcopalian Episcopalian Beliefs: jehovahs witness Current Living Situation: Spouse Other Information That Helps Us Care for You: No Feels Safe at Home: Yes Safety Concerns: Feels Safe At This Time Smoking Status: Never smoker Hx Alcohol Use: No Hx Substance Use: No Review of Systems Review of Systems: All systems reviewed & are unremarkable except as noted in HPI & below Physical Exam Physical Exam: General: NAD, AAO x3, well nourished. HEENT: Normocephalic. Atraumatic. Conjunctiva pink, no scleral icterus. Neck: No carotid bruits, the carotid upstrokes are brisk. No JVD. No HJR Heart: Regular normal S-1 and S-2 no S-3 or S-4 gallop. No murmurs or rub appreciated. PMI is not displaced. No RV heave. Lungs: Clear bilateral without rales , rhonchi, or wheeze. Abdomen: Normal bowel sounds. Soft. Mild tenderness with deep palpation. No masses or organomegaly. No abdominal bruits. Extremities: No clubbing, cyanosis, or edema. Pulses: radial=2/4, Dorsalis pedis =2/4, posterior tibial=2/4. Neuro: Cranial nerves grossly intact. No focal motor deficit. Results & Data Vital Signs (Past 12 Hours) Vital Signs Temp Pulse Pulse Resp BP BP Pulse Ox 04/14/19 11:20 66 04/14/19 11:14 36.8 C 65 18 171/74 H 96 04/14/19 09:19 36.8 C 68 13 166/79 H 97 04/14/19 08:42 74 18 165/71 H 96 04/14/19 07:02 76 18 176/82 H 96 04/14/19 06:07 78 16 191/80 H 97 04/14/19 05:36 75 16 193/78 H 97 04/14/19 04:43 71 16 182/78 H 98 04/14/19 04:22 75 16 194/84 H 97 04/14/19 04:10 61 16 212/85 H 97 04/14/19 03:38 65 20 218/92 H 98 04/14/19 02:01 36.5 C 87 18 228/94 H 98 Laboratory Results Laboratory Results - last 24 hr 04/14/19 04/14/19 04/14/19 02:10 02:10 02:46 WBC 10.52 RBC 5.13 Hgb 14.9 Hct 43.2 MCV 84.2 MCH 29.0 MCHC 34.5 RDW Std Deviation 41.1 RDW Coeff of Drake 13.4 Plt Count 161 MPV 10.0 Immature Gran % (Auto) 0.2 Neut % (Auto) 81.3 Lymph % (Auto) 13.2 [place] % (Auto) 4.5 Eos % (Auto) 0.7 Baso % (Auto) 0.1 Immature Gran # (Auto) 0.02 Neut # (Auto) 8.56 H Lymph # (Auto) 1.39 [place] # (Auto) 0.47 Eos # (Auto) 0.07 Baso # (Auto) 0.01 Sodium 138 Potassium 3.6 Chloride 99 Carbon Dioxide 34 H Anion Gap 5.0 BUN 15 Creatinine 0.98 Est Cr Clr Drug Dosing 71.4 Est GFR ( Amer) 87.7 Est GFR (Non-Af Amer) 75.6 BUN/Creatinine Ratio 15.6 Glucose 224 H POC Glucose POC Lactic Acid Jonathan 0.94 Calcium 9.3 Magnesium 2.1 Total Bilirubin 1.2 H AST 21 ALT 27 Alkaline Phosphatase 97 Troponin I < 0.015 Total Protein 8.2 Albumin 4.6 Globulin 3.6 Albumin/Globulin Ratio 1.3 Lipase 140 04/14/19 10:44 WBC RBC Hgb Hct MCV MCH MCHC RDW Std Deviation RDW Coeff of Drake Plt Count MPV Immature Gran % (Auto) Neut % (Auto) Lymph % (Auto) [place] % (Auto) Eos % (Auto) Baso % (Auto) Immature Gran # (Auto) Neut # (Auto) Lymph # (Auto) [place] # (Auto) Eos # (Auto) Baso # (Auto) Sodium Potassium Chloride Carbon Dioxide Anion Gap BUN Creatinine Est Cr Clr Drug Dosing Est GFR ( Amer) Est GFR (Non-Af Amer) BUN/Creatinine Ratio Glucose POC Glucose 240 H POC Lactic Acid Jonathan Calcium Magnesium Total Bilirubin AST ALT Alkaline Phosphatase Troponin I Total Protein Albumin Globulin Albumin/Globulin Ratio Lipase
[2019-04-14] MEDS: INSULIN ASPART 100 UNITS/ML 3 ML PEN SC SCH ×2 (12:12→17:53)
[2019-04-14] MEDS ORDERED: SINCALIDE 1.8 MCG in 0.9 % SODIUM CHLORIDE 100 ML IV SCH (14:00)
[2019-04-14] MEDS ORDERED: MoRPHine SULFATE 2 MG/ML CARP ONE (14:17)
--- NOTE | 2019-04-14 15:11 | Nuclear Medicine Report ---
NM hepatobiliary EF HISTORY: Pain. Nausea. Gallstones, abd pain COMPARISON: CT 04/14/2019. Gallbladder ultrasound same date TECHNIQUE: Immediately following the intravenous administration of 5.4 mCi Tc-99m Choletec, dynamic a nterior abdominal imaging pre/post 1.2 mcg of Kinevac was performed. FINDINGS: Uniform hepatic tracer accumulation is shown. There is good flow of isotope into the small bowel. There is accumulation of isotope over the mid common bile duct. Review of the patient's CT examinatio n shows a diverticulum in this facility. No definite activity within the gallbladder is appreciated. This is followed by the administration of morphine. This fails to fill the gallbladder. IMPRESSION: 1. Nonvisualization of the gallbladder suggestive of acute cholecystitis. 2. Accumulation of contrast overlying the mid common duct felt to represent activity within a duodena l sweep diverticulum. 2. Normal flow of isotope to the small bowel. The above report was generated using voice recognition software. It may contain grammatical, syntax or spelling errors. Electronically signed by: John Prince M.D. 04/14/2019 3:10 PM
--- NOTE | 2019-04-14 15:24 | Anesthesiology Consultation ---
Date of Service April 14, 2019 Assessment & Plan (1) Encounter for pre-operative examination: Chart Review Chart Review: Acceptable Risk for Surgery (no further preop testing per cardiology) History Surgery Operation Date: 04/15/19 07:15 Proposed Procedures p Laparoscopic Cholecystectomy - Lori Mcclure MD Height/Weight Height: 5 ft 8 in Weight: 88.2 kg Allergies Allergy/AdvReac Type Severity Reaction Status Date / Time No Known Allergies Allergy Unverified 04/14/19 02:29 Medications Home Medications Medication Instructions Recorded Confirmed Last Taken Lantus Solostar U-100 Insulin 24 units SUBCUT BID 04/14/19 04/14/19 04/13/19 alprazolam 0.25 mg PO TID PRN 04/14/19 04/14/19 Unknown aspirin 81 mg PO DAILY 04/14/19 04/14/19 Unknown carvedilol 25 mg PO BID 04/14/19 04/14/19 Unknown clonidine HCl 0.1 mg PO Q6H PRN 04/14/19 04/14/19 Unknown insulin aspart U-100 [Novolog 5 unit SUBCUT BID 04/14/19 04/14/19 04/13/19 Flexpen U-100 Insulin] lisinopril-hydrochlorothiazide 2 tab PO DAILY 04/14/19 04/14/19 Unknown potassium chloride 10 meq PO DAILY 04/14/19 04/14/19 Unknown rosuvastatin 20 mg PO HS 04/14/19 04/14/19 Unknown terazosin 5 mg PO DAILY 04/14/19 04/14/19 Unknown Active Medications Generic Name Dose Route Start Last Admin Trade Name Yungq PRN Reason Stop Dose Admin Carvedilol 25 mg 04/14/19 09:16 04/14/19 10:00 Coreg PO 05/14/19 09:15 25 mg BID DAVE Administration Lisinopril/HCTZ 2 tab 04/14/19 09:16 04/14/19 09:59 Prinzide 20/12.5mg PO 05/14/19 09:15 2 tab DAILY DAVE Administration Sodium Chloride 1,000 mls @ 125 mls/hr 04/14/19 02:45 04/14/19 09:42 Nss 1000ml IV 05/14/19 02:44 125 mls/hr .Q8H DAVE Administration Insulin Aspart 0 units 04/14/19 12:00 04/14/19 12:12 Novolog Flexpen SC 05/14/19 11:59 4 units Q6 DAVE Administration Protocol Ioversol 100 ml 04/14/19 03:43 04/14/19 03:43 Optiray 320 100ml IV 04/18/19 03:42 93 ml ONCE PRN Administration Interaction Checking Potassium Chloride 10 meq 04/14/19 09:16 04/14/19 10:00 Klor-Con M10 PO 05/14/19 09:15 10 meq DAILY DAVE Administration Terazosin HCl 5 mg 04/14/19 09:16 04/14/19 10:00 Hytrin PO 05/14/19 09:15 5 mg DAILY DAVE Administration Past Medical History Medical History Abdominal pain (Acute) Acute cholecystitis (Acute) Bradyarrhythmia (Acute) Hypertensive heart disease (Chronic) Dyslipidemia (Chronic) Paroxysmal atrial tachycardia (Chronic) UGI bleed (Resolved) "Dieulafoy lesion of stomach" Diabetes mellitus, type 2 (Chronic) Paroxysmal ventricular tachycardia (Chronic) Patient is Restoration (Chronic) "no blood products" Hypertension (Acute) Past Surgical History Surgical History Status post cardiac pacemaker procedure (Chronic) "dual chamber pacemaker 03/09/16" Social History Smoking Status: Never smoker Hx Alcohol Use: No Hx Substance Use: No Physical Exam Vital Signs Last Vital Signs Temp 36.8 C 04/14/19 15:15 Pulse 71 04/14/19 15:15 Resp 18 04/14/19 15:15 BP 136/71 04/14/19 15:15 Pulse Ox 95 04/14/19 15:15 Testing Laboratory Results 04/14/19 02:10 04/14/19 02:10 04/14/19 04/14/19 12:00 10:44 POC Glucose 211 H 240 H Electrocardiogram Date: 04/14/19 atrial paced, HR 91 - no changes from prior
[2019-04-14] MEDS: ALPRAZolam 0.25 MG TABLET PO PRN (17:16)
[2019-04-14] MEDS: ROSUVASTATIN CALCIUM 20 MG TAB PO SCH (21:19)
[2019-04-15] MEDS: INSULIN ASPART 100 UNITS/ML 3 ML PEN SC SCH ×6 (00:45→21:16)
[2019-04-15] MEDS: SODIUM CHLORIDE 0.9% 1000ML 1,000 ML IV SCH ×3 (04:10→23:47)
[2019-04-15] MEDS ORDERED: CEFAZOLIN 2000MG 2,000 MG/15 ML SYR IV SCH (06:54)
--- NOTE | 2019-04-15 06:54 | History & Physical Bridge Note ---
Date of Service April 15, 2019 History & Physical Bridge Note I have examined the patient, reviewed the History & Physical and in the interval since the performance of the History & Physical I have noted the following changes of clinical significance: no changes noted
[2019-04-15] MEDS ORDERED: BUPIVACAINE 0.5 % 5 MG/1 ML MPF 30ML VIAL ONE (07:04)
[2019-04-15] MEDS ORDERED: CONRAY 60% 50 ML VIAL ONE (07:04)
[2019-04-15] MEDS ORDERED: LIDOCAINE HCL 1% 20 ML VIAL ONE (07:04)
[2019-04-15] MEDS ORDERED: BACITRACIN OINT 15 GM TUBE ONE (07:04)
[2019-04-15] MEDS ORDERED: fentaNYL citrate 100 MCG/2 ML VIAL ONE (07:07)
[2019-04-15] MEDS ORDERED: SUCCINYLCHOLINE CHLORIDE 20 MG/ML 10 ML VIAL ONE (07:07)
[2019-04-15] MEDS ORDERED: NEOSTIGMINE METHYLSULFATE 5 MG/5 ML SYR ONE (07:07)
[2019-04-15] MEDS ORDERED: ePHEDrine sulfate 50 MG/ML AMP ONE (07:07)
[2019-04-15] MEDS ORDERED: GLYCOPYRROLATE 0.2 MG/ML VIAL ONE (07:07)
[2019-04-15] MEDS ORDERED: PHENYLEPHRINE HCL 10 MG/ML VIAL ONE (07:07)
[2019-04-15] MEDS ORDERED: DEXAMETHASONE SOD INJ 4 MG/ML VIAL ONE (07:07)
[2019-04-15] MEDS ORDERED: ONDANSETRON INJ 2 MG/ML 2 ML VIAL ONE (07:07)
[2019-04-15] MEDS ORDERED: PROPOFOL IV EMULSION 10 MG/ML 20 ML VIAL IV ONE (07:07)
[2019-04-15] MEDS ORDERED: LIDOCAINE HCL 2% 2 ML VIAL/AMP(20MG/ML) INFIL ONE (07:07)
[2019-04-15] MEDS ORDERED: HYDROmorphone INJ 2 MG/ML SYR/VIAL IV PRN (07:22)
[2019-04-15] MEDS ORDERED: ePHEDrine sulfate 50 MG/ML AMP IV PRN (07:22)
[2019-04-15] MEDS ORDERED: ATROPINE SULFATE 0.1 MG/ML 10ML SYR IV PRN (07:22)
--- NOTE | 2019-04-15 09:16 | Post Operative Brief Note ---
Immediate Post Op Note v1 Date of Surgery April 15, 2019 Pre & Post Diagnosis Operation Date: 04/15/19 07:15 Pre-Op Diagnosis: ACUTE CHOLECYSTITIS, cholelithiasis Post-Op Diagnosis: ACUTE CHOLECYSTITIS, cholelithiasis Procedure Operation Date: 04/15/19 07:15 Actual Procedures p Laparoscopic Cholecystectomy(Not Applicable) - Lori Mcclure MD Surgeon Lori Mcclure MD Spindle Tester BEAR Gallagher Estimated Blood Loss 30 Findings Consistent with Post-Op Diagnosis significant inflammation on gallbladder wall, Fluids 1100ml Specimens gallbladder Anesthesia Type General Complications none Disposition Accompanied Patient To Recovery: Yes Disposition: Recovery Room Overlapping Procedure I was immediately available: during the entire case.
[2019-04-15] MEDS ORDERED: PIPERACILL/TAZOBAC CONSULT ACTIVE PRN (09:32)
[2019-04-15] MEDS ORDERED: MIDAZOLAM HCL 1 MG/ML 2ML VIAL ONE (09:36)
[2019-04-15] MEDS ORDERED: PIPERACILLIN/TAZOBACTAM 3.375 GM in DEXTROSE 5% 100 ML IV ONE (10:15)
--- NOTE | 2019-04-15 10:25 | Operative Report ---
DATE OF OPERATION: 04/15/2019 PREOPERATIVE DIAGNOSES: Acute cholecystitis, cholelithiasis. POSTOPERATIVE DIAGNOSIS: Acute cholecystitis, cholelithiasis. OPERATION: Laparoscopic cholecystectomy. SURGEON: Lori Mcclure MD REHAB LIAISON: Vandana Edwards PA-C ANESTHESIA: General. ESTIMATED BLOOD LOSS: About 30 mL. FINDINGS: Significant inflammation on the gallbladder wall, gallbladder wall thickening, edema, confirmed diagnosis of acute cholecystitis. COMPLICATIONS: None. INDICATIONS FOR THE PROCEDURE: This is a 73-year-old gentleman who was admitted to hospital for acute cholecystitis. The patient will be required to do laparoscopic cholecystectomy, possible open, possible cholangiogram. I did talk to the patient about the benefit and risk, alternate procedure. I indicated the risks may include but not limited such as bleeding, infection, injury to common bile duct, injury to the bowel, may need ERCP, myocardial infarction, DVT, stroke, even . The patient understands. He signed informed consent and I answered all questions. DETAILS OF PROCEDURE: We brought the patient to the OR, put the patient in the supine position. The patient received SCD on bilateral legs to prevent DVT. Also, the patient received 2 grams Ancef IV for prophylactic antibiotic. The patient received general anesthesia without difficulty. The abdomen was appropriately draped in routine sterile fashion. After timeout, I injected the local anesthesia by using 1% lidocaine mixed with 0.5% Marcaine just above umbilicus. Then, I made a small incision just above umbilicus, opened fascia and opened peritoneum, under direct vision, put a Elías trocar in, connected to CO2 to create pneumoperitoneum. Flow rate at 6 liters per minute. Pressure not more than 14 mmHg. Once we got a nice pneumoperitoneum, we put the camera in, looked around the abdomen, it shows normal finding on the liver. However, the gallbladder showed significant inflammation, gallbladder wall thickening, edema. Also, there are omental covers of gallbladder and to the gallbladder, confirmed diagnosis of acute cholecystitis. Then, we put another two 5 mm trocar on the right upper quadrant, one is 11 trocar on the epigastric area. Once all trocars in, we used a grasper to hold the base of the gallbladder, put a direction to the diaphragm and removed all the omental covers of the gallbladder, again showing significant gallbladder wall inflammation, wall thickening, edema. Then, we put another grasper to hold the pouch of gallbladder, put latter to explore the triangle of Calot. The cystic duct was identified and mobilized. I put two 10 mm metal clip on the proximal cystic duct, one on the distal cystic duct and used the scissor for transecting the cystic duct. Rechecked and no bile leak. Then, the cystic artery was identified and mobilized. I used two 10 mm metal clip on the proximal cystic artery, one on the distal cystic artery. I used a scissor for transection of cystic artery. Rechecked, no active bleeding. Then, we used a Bovie to take down gallbladder from the liver bed. Rechecked and no active bleeding from the liver bed, pneumoperitoneum, no bile leak from the liver bed. Then, we removed gallbladder through the catch bag. Then, we reinserted Elías trocar in, connected to CO2 to create pneumoperitoneum. Again, looked around the abdomen, no bile leak and no active bleeding from the liver bed. Then, we removed all trocar under direct vision. No active bleeding from the trocar sites. Pneumoperitoneum was released. Then, we closed the umbilical incision, fascial layer by using #1 Vicryl [id number] x2, closed subcutaneous layer by using 2-0 Vicryl interruptedly, closed skin by using 4-0 Vicryl continuous running, closed the epigastric 11 trocar site, fascial layer by using #1 Vicryl [id number] x2, closed subcutaneous layer by using 2-0 Vicryl interruptedly, closed skin by using 4-0 Vicryl interruptedly, and closed another two 5 mm trocar site skin only by using 4-0 Vicryl. Then, we put the dressing on. The patient tolerated the procedure well. All instrument, needle and sponge count were correct x2 at the end of the case. The patient transferred to recovery room in stable condition. After procedure, I did talk to the patient and family member about the OR finding and procedure we did, they understand. The specimen sent to pathology. I attest to the content of the Intraoperative Record and any orders documented therein. Any exception s are noted below.
[2019-04-15] MEDS ORDERED: OXYCODONE/ACETAMINOPHEN 5mg/325mg TAB PO PRN ×2 (10:56)
[2019-04-15] MEDS: ALPRAZolam 0.25 MG TABLET PO PRN (11:11)
[2019-04-15] MEDS: LISINOPRIL/HCTZ 20/12.5MG 1 TAB TAB PO SCH (12:20)
[2019-04-15] MEDS: TERAZOSIN HCL 5 MG CAP PO SCH (12:20)
[2019-04-15] MEDS: CARVEDILOL 25 MG TAB PO SCH ×2 (12:20→20:30)
[2019-04-15] MEDS: POTASSIUM CHLORIDE 10 MEQ TABCR PO SCH (12:20)
[2019-04-15] MEDS ORDERED: INSULIN GLARGINE SOLOSTAR 100 UNITS/ML 3 ML PEN SC ONE (12:30)
--- NOTE | 2019-04-15 12:59 | Anesthesiology Progress Note ---
Date of Service April 15, 2019 Anesthesia Post Procedure Vital Signs Vital Signs: Temp Pulse Pulse Pulse Resp BP BP 04/15/19 11:25 37.0 C 72 18 166/72 H 04/15/19 10:55 37.1 C 72 16 179/73 H 04/15/19 10:31 37.0 C 73 18 169/74 H 04/15/19 10:20 76 18 170/76 H 04/15/19 10:10 72 20 169/81 H 04/15/19 10:00 76 21 159/66 H 04/15/19 09:50 75 24 168/73 H 04/15/19 09:41 36.4 C L 72 21 152/89 H 04/15/19 07:11 65 04/15/19 06:51 36.8 C 69 20 181/83 H 04/15/19 06:30 36.9 C 90 175/71 H 04/15/19 03:44 37.0 C 75 16 143/68 H 04/14/19 23:24 37.1 C 66 18 134/57 L 04/14/19 23:00 60 04/14/19 18:44 37.1 C 69 18 130/68 04/14/19 16:30 73 04/14/19 15:15 36.8 C 71 18 136/71 Pulse Ox 04/15/19 11:25 92 04/15/19 10:55 92 04/15/19 10:31 92 04/15/19 10:20 92 04/15/19 10:10 91 04/15/19 10:00 92 04/15/19 09:50 95 04/15/19 09:41 97 04/15/19 07:11 04/15/19 06:51 98 04/15/19 06:30 94 04/15/19 03:44 94 04/14/19 23:24 96 04/14/19 23:00 04/14/19 18:44 96 04/14/19 16:30 04/14/19 15:15 95 Pain Intensity Bilateral Abdomen: Pain Intensity: 1 Transfer of Care Handoff Completed per policy Notes Mental Status: alert / awake / arousable Patient Amnestic to Procedure: Yes Nausea / Vomiting: adequately controlled Pain: adequately controlled Airway Patency, RR, SpO2: stable & adequate BP & HR: stable & adequate Hydration State: stable & adequate Anesthetic Complications: no major complications apparent and Pt Satisfied with anesthetic care
--- NOTE | 2019-04-15 15:11 | Pharmacy Report ---
Glycemic Control Progress Note - Date of Service April 15, 2019 - Scope Glycemic Pharmacist consulted for glycemic control to write orders per [facility] inpatient glycemic control protocol. - Objective Accuchecks BSG(last 24 hours):: 04/14/19 04/14/19 04/15/19 16:35 20:13 00:19 POC Glucose 170 H 164 H 108 H 04/15/19 04/15/19 04/15/19 06:07 09:46 11:53 POC Glucose 93 110 H 167 H - Recent Pertinent Medications The patient is currently receiving: * Basal insulin: Lantus 25 units x 1 then 5-15 units at night * Correctional Insulin: Novolog Correction per scale ACHS Goal Range: Low 110 mg/dL - High 140 mg/dL Correction Factor: 20 mg/dL/unit * Prandial insulin: Per carb ratio of 1 unit per 6 grams CHO consumed - Outpatient Anti-Diabetic Meds Lantus 24 units BID plus Novolog 5 units BID - Assessment & Plan ASSESSMENT: * See progress note from 04/14/19 for more background info, in short: * Pt receiving SQ basal bolus insulin regimen for hyperglycemia secondary to baseline DM (outpatient regimen on hold),stress/infection (currently on Zosyn post-op), and POD 0 for lap [place] (received dexamethasone 4 mg intraop) * Patient is currently receiving an average of 44 units of insulin per day * 35 units of basal insulin * 9 units of prandial/correctional insulin * BSGs ranging 108 - 240 mg/dl over the past 24hrs * Changes needed to insulin regimen: * AM Fasting BSG = 93 mg/dl. This is in slightly below goal range for patient based on inpatient targets and co-morbidities. The patient received steroids during surgery so okay with a 10% increase in Lantus (20% increase for if blood sugars over 200 mg/dL tonight). Scheduled dose of 20 units for tomorrow morning since it appears patient requires around 40 units of basal per day. * Post-prandial BSGs will soon be out of range due to the dexamethasone. Tightened CR slightly to 5. * Total daily dose is currently unknown - more to be determined based upon what happens when patient eats. PLAN FOR INPATIENT GLYCEMIC CONTROL: * Increasing Lantus to 30 units SQ x 1 then 0-15 units tonight. Start 20 units SQ BID tomorrow. * Continuing correction factor of 20 mg/dl/unit * Changing carb ratio to 1 unit per 5 grams CHO consumed * Continuing goal range of Low 120 mg/dL - High 160 mg/dL RECOMMENDATIONS FOR DISCHARGE: * pending HbA1C for tomorrow * Please note that the plan above was derived based on current level of insulin resistance and hospital stress. These recommendations are appropriate for inpatient admission only. Plan of care upon discharge will need to be reassessed to avoid potential outpatient hypo/hyperglycemia. Thank you.
[2019-04-15] MEDS: PIPERACILLIN/TAZOBACTAM 3.375 GM in DEXTROSE 5% 100 ML IV SCH ×2 (16:16→23:42)
[2019-04-15] MEDS: ACETAMINOPHEN 325 MG TAB PO PRN ×2 (16:50→23:42)
--- NOTE | 2019-04-15 17:31 | Hospitalist Progress Note ---
Date of Service April 15, 2019 Assessment & Plan (1) Acute cholecystitis: Acute cholecystitis S/P laparoscopic cholecystectomy POD #0 Continue IV fluids, Zosyn Pain control Bowel regimen to prevent constipation Appreciate surgery input Advance diet as tolerated Monitor for postop anemia (2) Hypertensive heart disease: Blood pressure variable Likely secondary to pain Continue lisinopril, terazosin, Coreg Clonidine as needed Monitor blood pressure (3) Dyslipidemia: On Crestor (4) Diabetes mellitus, type 2: Continue Lantus, insulin sliding scale Monitor blood glucose levels (5) Status post cardiac pacemaker procedure: (6) Patient is Holiness: DVT Px: SCDs for now Code Status Full Code Disposition: PT/OT prior to discharge Subjective Patient is seen and examined at bedside Had laparoscopic cholecystectomy today Pain at surgical site is controlled Denies any chest pain, shortness of breath, dizziness, nausea Tolerating liquid diet Family at bedside No other complaints Review of Systems Review of Systems: All systems reviewed & are unremarkable except as noted in HPI & below Physical Exam Physical Exam: Physical Exam: Vitals signs as noted above General Appearance:Moderately built and nourished, no apparent distress Head: normocephalic, Atraumatic Eyes: normal inspection, EOMI Neck: supple, Trachea midline Respiratory/Chest: Normal breath sounds, +Basal Crackles Cardiovascular: S1, S2, No murmur Abdomen/GI:Soft, mild tender, Bowel sounds present, +Surgical site on dressing Extremities/Musculoskelatal:normal inspection, no edema Neurologic/Psych:AAOX3, grossly no focal neurological deficits Skin: normal color, warm Results & Data Vital Signs (Past 12 Hours) Vital Signs Temp Pulse Pulse Pulse Pulse Resp BP 04/15/19 16:44 38.0 C H 66 20 04/15/19 15:05 37.1 C 68 19 181/77 H 04/15/19 11:45 37 C 70 16 151/75 H 04/15/19 11:25 37.0 C 72 18 166/72 H 04/15/19 10:55 37.1 C 72 16 04/15/19 10:31 37.0 C 73 18 169/74 H 04/15/19 10:20 76 18 170/76 H 04/15/19 10:10 72 20 169/81 H 04/15/19 10:00 76 21 159/66 H 04/15/19 09:50 75 24 168/73 H 04/15/19 09:41 36.4 C L 72 21 152/89 H 04/15/19 07:11 65 04/15/19 06:51 36.8 C 69 20 04/15/19 06:30 36.9 C 90 BP Pulse Ox 04/15/19 16:44 162/64 H 92 04/15/19 15:05 94 04/15/19 11:45 92 04/15/19 11:25 92 04/15/19 10:55 179/73 H 92 04/15/19 10:31 92 04/15/19 10:20 92 04/15/19 10:10 91 04/15/19 10:00 92 04/15/19 09:50 95 04/15/19 09:41 97 04/15/19 07:11 04/15/19 06:51 181/83 H 98 04/15/19 06:30 175/71 H 94
[2019-04-15] MEDS: cloNIDine HCl 0.1 MG TAB PO PRN (17:46)
[2019-04-15] MEDS: ROSUVASTATIN CALCIUM 20 MG TAB PO SCH (20:30)
[2019-04-15] MEDS ORDERED: INSULIN GLARGINE SOLOSTAR 100 UNITS/ML 3 ML PEN SC SCH (21:00)
[2019-04-15] MEDS ORDERED: INSULIN GLARGINE SQ SCH (21:00)
[2019-04-15] MEDS ORDERED: INSULIN ASPART 100 UNITS/ML 3 ML PEN SQ SCH (21:00)
[2019-04-15] MEDS ORDERED: [UNRECOGNIZED DRUG - OTHER] SQ SCH (21:00)
[2019-04-16 07:48] LABS: Hematocrit (blood only) 35.2 % (42-52); Hemoglobin 11.9 g/dL (14.0-18.0); Mean Corpuscular Hemoglobin 29.3 pg (25-34); Mean Corpuscular Hgb Conc 33.8 g/dL (32-36); Mean Corpuscular Volume 86.7 fL (80-100); Mean Platelet Volume 10.3 fL (7.4-10.4); Platelet Count 118 K/uL (130-400); RDW Coefficient of Variation 13.7 % (11.5-14.5); RDW Standard Deviation 43.7 fL (36.4-46.3); Red Blood Count 4.06 M/uL (4.7-6.1); White Blood Count 13.73 K/uL (4.8-10.8)
--- NOTE | 2019-04-16 07:54 | Anesthesiology Progress Note ---
Date of Service April 16, 2019 Anesthesia Post Procedure Vital Signs Vital Signs: Temp Pulse Pulse Pulse Resp BP BP 04/16/19 07:00 37.3 C 66 20 147/67 H 04/16/19 03:09 36.8 C 71 19 128/67 04/16/19 01:00 37.6 C H 04/16/19 00:05 65 04/15/19 23:36 38.1 C H 71 20 131/64 04/15/19 19:16 38.0 C H 79 20 148/67 H 04/15/19 17:35 38.3 C H 65 20 179/68 H 04/15/19 16:44 38.0 C H 66 20 162/64 H 04/15/19 16:00 77 04/15/19 15:05 37.1 C 68 19 181/77 H 04/15/19 11:45 37 C 70 16 151/75 H 04/15/19 11:25 37.0 C 72 18 166/72 H 04/15/19 10:55 37.1 C 72 16 179/73 H 04/15/19 10:31 37.0 C 73 18 169/74 H 04/15/19 10:20 76 18 170/76 H 04/15/19 10:10 72 20 169/81 H 04/15/19 10:00 76 21 159/66 H 04/15/19 09:50 75 24 168/73 H 04/15/19 09:41 36.4 C L 72 21 152/89 H Pulse Ox 04/16/19 07:00 95 04/16/19 03:09 95 04/16/19 01:00 04/16/19 00:05 04/15/19 23:36 96 04/15/19 19:16 94 04/15/19 17:35 94 04/15/19 16:44 92 04/15/19 16:00 04/15/19 15:05 94 04/15/19 11:45 92 04/15/19 11:25 92 04/15/19 10:55 92 04/15/19 10:31 92 04/15/19 10:20 92 04/15/19 10:10 91 04/15/19 10:00 92 04/15/19 09:50 95 04/15/19 09:41 97 Pain Intensity Bilateral Abdomen: Pain Intensity: 1 Notes Mental Status: alert / awake / arousable and participated in evaluation Patient Amnestic to Procedure: Yes Nausea / Vomiting: adequately controlled Pain: adequately controlled Airway Patency, RR, SpO2: stable & adequate BP & HR: stable & adequate Hydration State: stable & adequate Anesthetic Complications: no major complications apparent and Pt Satisfied with anesthetic care
[2019-04-16 08:08] LABS: Estimated Average Glucose 177 mg/dl; Hemoglobin A1C 7.8 % (4.5-5.6)
[2019-04-16 08:22] LABS: Calcium 8.2 mg/dl (8.5-10.1); Creatinine Clr Calc Pharmacy 70.8 ml/min; Est GFR (African American) 85.6; Est GFR (Non-African American) 73.8; Potassium 3.3 mmol/L (3.5-5.1)
[2019-04-16] MEDS ORDERED: POTASSIUM CHLORIDE 10 MEQ TABCR PO STA (08:54)
[2019-04-16] MEDS ORDERED: INSULIN GLARGINE SOLOSTAR 100 UNITS/ML 3 ML PEN SC SCH ×2 (09:00→21:00)
[2019-04-16] MEDS: INSULIN ASPART 100 UNITS/ML 3 ML PEN SC SCH ×4 (09:14→21:05)
[2019-04-16] MEDS: SODIUM CHLORIDE 0.9% 1000ML 1,000 ML IV SCH (09:15)
[2019-04-16 09:16] LABS: Albumin Level 2.9 gm/dl (3.4-5.0); Bilirubin Direct 0.4 mg/dl (0-0.2); Bilirubin,Total 1.9 mg/dl (0.2-1); Total Protein 6.2 gm/dl (6.4-8.2)
[2019-04-16] MEDS: PIPERACILLIN/TAZOBACTAM 3.375 GM in DEXTROSE 5% 100 ML IV SCH ×2 (09:19→16:40)
[2019-04-16] MEDS: ACETAMINOPHEN 325 MG TAB PO PRN (09:31)
[2019-04-16] MEDS: ALPRAZolam 0.25 MG TABLET PO PRN ×2 (09:32→21:12)
[2019-04-16] MEDS: CARVEDILOL 25 MG TAB PO SCH ×2 (09:33→21:06)
[2019-04-16] MEDS: ASPIRIN 81 MG ECTAB PO SCH (09:33)
[2019-04-16] MEDS: LISINOPRIL/HCTZ 20/12.5MG 1 TAB TAB PO SCH (09:34)
[2019-04-16] MEDS: TERAZOSIN HCL 5 MG CAP PO SCH (09:34)
--- NOTE | 2019-04-16 10:45 | Surgery Progress Note ---
Date of Service April 16, 2019 Assessment & Plan (1) Abdominal pain: POD # 1 s/p laparoscopic cholecystectomy - febrile last night tmax of 38.3, afebrile this morning - leukocytosis of 13K - post op pain minimal, controlled with PO Tylenol - t. bili 1.9 (1.2 preop), LFTS wnl Plan: Can advance to regular diabetic diet d/c iv fluids continue IV Zosyn, will need transition to oral antibiotics on discharge for total abx course of 10 days given severity of cholecystitis and pus in gall bladder Stool softener BID, Miralax prn encourage ambulation incentive spirometry scds for dvt prophylaxis repeat am labs including liver panel Dr. Mcclure has seen patient agrees with above Subjective feeling good this morning minimal pain at incision sites, more of a soreness tolerated clear liquids urinating without difficulty wants to go home, has appointment for pacemaker tomorrow Physical Exam Constitutional: WD/WN, vitals as above no acute distress Respiratory: no respiratory distress and no labored breathing Gastrointestinal (Abdomen): Inspection/Auscultation: abdomen normal to inspection; abdomen not distended Percussion/Palpation: + abdomen tender (at incision sites, appropriate post op) and abdomen soft; no guarding and abdomen not rigid Skin: no rashes, warm and dry + incision (covered with dressings, clean and dry, mild spotting) Psychiatric: A+Ox3, euthymic affect Results & Data Vital Signs (Past 12 Hours) Vital Signs Temp Pulse Pulse Resp BP Pulse Ox 04/16/19 07:00 37.3 C 66 20 147/67 H 95 04/16/19 03:09 36.8 C 71 19 128/67 95 04/16/19 01:00 37.6 C H 04/16/19 00:05 65 04/15/19 23:36 38.1 C H 71 20 131/64 96 Laboratory Results 04/16/19 04/16/19 04/16/19 Range/Units 07:24 07:04 07:04 WBC (4.8-10.8) K/uL RBC (4.7-6.1) M/uL Hgb (14.0-18.0) g/dL Hct (42-52) % MCV (80-100) fL MCH (25-34) pg MCHC (32-36) g/dL RDW Std Deviation (36.4-46.3) fL RDW Coeff of Drake (11.5-14.5) % Plt Count (130-400) K/uL MPV (7.4-10.4) fL Sodium (136-145) mmol/L Potassium (3.5-5.1) mmol/L Chloride (98-107) mmol/L Carbon Dioxide (21-32) mmol/L Anion Gap (3-11) BUN (7-18) mg/dl Creatinine (0.6-1.4) mg/dl Est Cr Clr Drug Dosing ml/min Est GFR ( Amer) Est GFR (Non-Af Amer) BUN/Creatinine Ratio (10-20) Glucose (70-99) mg/dl POC Glucose 91 (70-99) Estimat Average Glucose 177 mg/dl Hemoglobin A1c 7.8 H (4.5-5.6) % Calcium (8.5-10.1) mg/dl Total Bilirubin 1.9 H (0.2-1) mg/dl Direct Bilirubin 0.4 H (0-0.2) mg/dl AST 27 (15-37) U/L ALT 27 (12-78) U/L Alkaline Phosphatase 54 (45-117) U/L Total Protein 6.2 L (6.4-8.2) gm/dl Albumin 2.9 L (3.4-5.0) gm/dl Lipase (73-393) U/L 04/16/19 04/16/19 04/16/19 Range/Units 07:04 07:04 01:57 WBC 13.73 H (4.8-10.8) K/uL RBC 4.06 L (4.7-6.1) M/uL Hgb 11.9 L (14.0-18.0) g/dL Hct 35.2 L (42-52) % MCV 86.7 (80-100) fL MCH 29.3 (25-34) pg MCHC 33.8 (32-36) g/dL RDW Std Deviation 43.7 (36.4-46.3) fL RDW Coeff of Drake 13.7 (11.5-14.5) % Plt Count 118 L (130-400) K/uL MPV 10.3 (7.4-10.4) fL Sodium 136 (136-145) mmol/L Potassium 3.3 L (3.5-5.1) mmol/L Chloride 103 (98-107) mmol/L Carbon Dioxide 28 (21-32) mmol/L Anion Gap 5.0 (3-11) BUN 13 (7-18) mg/dl Creatinine 1.00 (0.6-1.4) mg/dl Est Cr Clr Drug Dosing 70.8 ml/min Est GFR ( Amer) 85.6 Est GFR (Non-Af Amer) 73.8 BUN/Creatinine Ratio 13.0 (10-20) Glucose 78 (70-99) mg/dl POC Glucose 86 (70-99) Estimat Average Glucose mg/dl Hemoglobin A1c (4.5-5.6) % Calcium 8.2 L (8.5-10.1) mg/dl Total Bilirubin (0.2-1) mg/dl Direct Bilirubin (0-0.2) mg/dl AST (15-37) U/L ALT (12-78) U/L Alkaline Phosphatase (45-117) U/L Total Protein (6.4-8.2) gm/dl Albumin (3.4-5.0) gm/dl Lipase 32 L (73-393) U/L 04/15/19 04/15/19 04/15/19 Range/Units 20:30 16:22 11:53 WBC (4.8-10.8) K/uL RBC (4.7-6.1) M/uL Hgb (14.0-18.0) g/dL Hct (42-52) % MCV (80-100) fL MCH (25-34) pg MCHC (32-36) g/dL RDW Std Deviation (36.4-46.3) fL RDW Coeff of Drake (11.5-14.5) % Plt Count (130-400) K/uL MPV (7.4-10.4) fL Sodium (136-145) mmol/L Potassium (3.5-5.1) mmol/L Chloride (98-107) mmol/L Carbon Dioxide (21-32) mmol/L Anion Gap (3-11) BUN (7-18) mg/dl Creatinine (0.6-1.4) mg/dl Est Cr Clr Drug Dosing ml/min Est GFR ( Amer) Est GFR (Non-Af Amer) BUN/Creatinine Ratio (10-20) Glucose (70-99) mg/dl POC Glucose 136 H 110 H 167 H (70-99) Estimat Average Glucose mg/dl Hemoglobin A1c (4.5-5.6) % Calcium (8.5-10.1) mg/dl Total Bilirubin (0.2-1) mg/dl Direct Bilirubin (0-0.2) mg/dl AST (15-37) U/L ALT (12-78) U/L Alkaline Phosphatase (45-117) U/L Total Protein (6.4-8.2) gm/dl Albumin (3.4-5.0) gm/dl Lipase (73-393) U/L (1) Abdominal pain Abdominal location: upper abdomen, unspecified Qualified Code(s): R10.10 - Upper abdominal pain, unspecified
[2019-04-16] MEDS ORDERED: POLYETHYLENE (MIRALAX) 17 GM PACK PO PRN (10:56)
--- NOTE | 2019-04-16 11:29 | Gastrointestinal Consultation ---
Date of Consultation April 16, 2019 Assessment & Plan (1) Acute cholecystitis: 73 year old male history of pacer for tachy/parrish syndrome, admitted w/ acute cholecystitis POD #1 cholecystectomy on ABX therapy as he was febrile on admission. This AM, slight bump in Tbili was noted w/ normal transaminases. ABD US today (unable to obtain MR stan/ jimbo) Stat LFTs in the AM Continue ABX as ordered NPO after midnight given clinical concern for retained biliary stone Thank you for allowing us to participate in the care of this patient. Please call with any acute changes, questions or concerns. Please see addendum below with additional recommendation from my supervising physician. Present on Admission?: Yes Supervising Physician Co-Signing Physician Notes I have personally seen and examined the patient with LAURA Moore. Her note reflects my exam and findings. I agree with her impression and plan. Patient has no complaints and tolerated food. I would follow liver enzymes and symptoms. He may not need an ERCP. Remy Harmon M.D. History of Present Illness Reason for Consultation: elevated TBili 1.9 Requesting Physician: Dr Mcclure Attending Physician: Azar Nixon MD History of Present Illness 73 year old male w/ history T2DM, HTN, dyslipidemia, tachybradycardia syndrome s/p dual-chamberpacer placement admitted w/ acute cholecystitis POD#1 cholecystectomy - GI asked to evaluate for elevated TBili. Pt was seen and evaluated, chart reviewed. Family at bedside. Pt notes that he is feeling well, greatly improved since cholecystectomy. Operative note reviewed. Was started on ABX therapy as he was febrile on presentation and severity of inflammation, wall thickening, edema. Has some surgical dull abd pain but notes the abdominal pain that prompted ED evaluation has resolved. No nausea, vomiting. Tolerating diet, ate breakfast/lunch. Passing gas, no BM. It was noted isolated elevation of Tbili today to 1.9 w/ normal transaminases. HIDA: Nonvisualization of the gallbladder suggestive of acute cholecystitis. Accumulation of contrast overlying the mid common duct felt to represent activity within a duodenal sweep diverticulum.Normal flow of isotope to the small bowel. ABD US: Cholelithiasis with gallbladder wall thickening. Therefore, these findings likely represent with acute cholecystitis CT: Cholelithiasis with mild gallbladder wall thickening and adjacent infiltration. Although nondistended, the findings raise the possibility of acute cholecystitis. Findings could be correlated with right upper quadrant ultrasound. Extensive colonic diverticulosis without evidence for acute diverticulitis. Allergies Allergy/AdvReac Type Severity Reaction Status Date / Time No Known Allergies Allergy Unverified 04/14/19 02:29 Home Medications Home Medications Medication Instructions Recorded Confirmed Type Lantus Solostar U-100 Insulin 24 units SUBCUT BID 04/14/19 04/14/19 History alprazolam 0.25 mg PO TID PRN 04/14/19 04/14/19 History aspirin 81 mg PO DAILY 04/14/19 04/14/19 History carvedilol 25 mg PO BID 04/14/19 04/14/19 History clonidine HCl 0.1 mg PO Q6H PRN 04/14/19 04/14/19 History insulin aspart U-100 [Novolog 5 unit SUBCUT BID 04/14/19 04/14/19 History Flexpen U-100 Insulin] lisinopril-hydrochlorothiazide 2 tab PO DAILY 04/14/19 04/14/19 History potassium chloride 10 meq PO DAILY 04/14/19 04/14/19 History rosuvastatin 20 mg PO HS 04/14/19 04/14/19 History terazosin 5 mg PO DAILY 04/14/19 04/14/19 History Patient History Medical History Abdominal pain (Acute) Acute cholecystitis (Acute) Bradyarrhythmia (Acute) Hypertensive heart disease (Chronic) Dyslipidemia (Chronic) Paroxysmal atrial tachycardia (Chronic) UGI bleed (Resolved) "Dieulafoy lesion of stomach" Diabetes mellitus, type 2 (Chronic) Paroxysmal ventricular tachycardia (Chronic) Patient is Adventist (Chronic) "no blood products" Hypertension (Acute) Surgical History Status post cardiac pacemaker procedure (Chronic) "dual chamber pacemaker 03/09/16" Social History Preferred Language: [place] Beliefs That Will Affect Care: Caodaism Caodaism Beliefs: jehovahs witness Current Living Situation: Spouse Other Information That Helps Us Care for You: No Feels Safe at Home: Yes Safety Concerns: Feels Safe At This Time Smoking Status: Never smoker Hx Alcohol Use: No Hx Substance Use: No Review of Systems Constitutional: no fever, no chills and no fatigue Respiratory: no cough, no dyspnea and no wheezing Cardiovascular: no chest pain, no dyspnea and no dyspnea on exertion Gastrointestinal: no abdominal pain, no nausea, no coffee ground emesis, no hematemesis, no dysphagia, no blood in stools and no melena Physical Exam Constitutional: WD/WN, vitals as above Neck: trachea midline Respiratory: normal respiratory effort Cardiovascular: Rate/Rhythm: regular rate and regular rhythm Gastrointestinal (Abdomen): normal bowel sounds, soft, nontender, no hepatosplenomegaly Skin: no rashes, warm and dry Results & Data Vital Signs (Past 12 Hours) Vital Signs Temp Pulse Pulse Resp BP Pulse Ox 04/16/19 07:00 37.3 C 66 20 147/67 H 95 04/16/19 03:09 36.8 C 71 19 128/67 95 04/16/19 01:00 37.6 C H 04/16/19 00:05 65 04/15/19 23:36 38.1 C H 71 20 131/64 96 Laboratory Results 04/16/19 04/16/19 04/16/19 Range/Units 07:24 07:04 07:04 WBC (4.8-10.8) K/uL RBC (4.7-6.1) M/uL Hgb (14.0-18.0) g/dL Hct (42-52) % MCV (80-100) fL MCH (25-34) pg MCHC (32-36) g/dL RDW Std Deviation (36.4-46.3) fL RDW Coeff of Drake (11.5-14.5) % Plt Count (130-400) K/uL MPV (7.4-10.4) fL Sodium (136-145) mmol/L Potassium (3.5-5.1) mmol/L Chloride (98-107) mmol/L Carbon Dioxide (21-32) mmol/L Anion Gap (3-11) BUN (7-18) mg/dl Creatinine (0.6-1.4) mg/dl Est Cr Clr Drug Dosing ml/min Est GFR ( Amer) Est GFR (Non-Af Amer) BUN/Creatinine Ratio (10-20) Glucose (70-99) mg/dl POC Glucose 91 (70-99) Estimat Average Glucose 177 mg/dl Hemoglobin A1c 7.8 H (4.5-5.6) % Calcium (8.5-10.1) mg/dl Total Bilirubin 1.9 H (0.2-1) mg/dl Direct Bilirubin 0.4 H (0-0.2) mg/dl AST 27 (15-37) U/L ALT 27 (12-78) U/L Alkaline Phosphatase 54 (45-117) U/L Total Protein 6.2 L (6.4-8.2) gm/dl Albumin 2.9 L (3.4-5.0) gm/dl Lipase (73-393) U/L 04/16/19 04/16/19 04/16/19 Range/Units 07:04 07:04 01:57 WBC 13.73 H (4.8-10.8) K/uL RBC 4.06 L (4.7-6.1) M/uL Hgb 11.9 L (14.0-18.0) g/dL Hct 35.2 L (42-52) % MCV 86.7 (80-100) fL MCH 29.3 (25-34) pg MCHC 33.8 (32-36) g/dL RDW Std Deviation 43.7 (36.4-46.3) fL RDW Coeff of Drake 13.7 (11.5-14.5) % Plt Count 118 L (130-400) K/uL MPV 10.3 (7.4-10.4) fL Sodium 136 (136-145) mmol/L Potassium 3.3 L (3.5-5.1) mmol/L Chloride 103 (98-107) mmol/L Carbon Dioxide 28 (21-32) mmol/L Anion Gap 5.0 (3-11) BUN 13 (7-18) mg/dl Creatinine 1.00 (0.6-1.4) mg/dl Est Cr Clr Drug Dosing 70.8 ml/min Est GFR ( Amer) 85.6 Est GFR (Non-Af Amer) 73.8 BUN/Creatinine Ratio 13.0 (10-20) Glucose 78 (70-99) mg/dl POC Glucose 86 (70-99) Estimat Average Glucose mg/dl Hemoglobin A1c (4.5-5.6) % Calcium 8.2 L (8.5-10.1) mg/dl Total Bilirubin (0.2-1) mg/dl Direct Bilirubin (0-0.2) mg/dl AST (15-37) U/L ALT (12-78) U/L Alkaline Phosphatase (45-117) U/L Total Protein (6.4-8.2) gm/dl Albumin (3.4-5.0) gm/dl Lipase 32 L (73-393) U/L 04/15/19 04/15/19 04/15/19 Range/Units 20:30 16:22 11:53 WBC (4.8-10.8) K/uL RBC (4.7-6.1) M/uL Hgb (14.0-18.0) g/dL Hct (42-52) % MCV (80-100) fL MCH (25-34) pg MCHC (32-36) g/dL RDW Std Deviation (36.4-46.3) fL RDW Coeff of Drake (11.5-14.5) % Plt Count (130-400) K/uL MPV (7.4-10.4) fL Sodium (136-145) mmol/L Potassium (3.5-5.1) mmol/L Chloride (98-107) mmol/L Carbon Dioxide (21-32) mmol/L Anion Gap (3-11) BUN (7-18) mg/dl Creatinine (0.6-1.4) mg/dl Est Cr Clr Drug Dosing ml/min Est GFR ( Amer) Est GFR (Non-Af Amer) BUN/Creatinine Ratio (10-20) Glucose (70-99) mg/dl POC Glucose 136 H 110 H 167 H (70-99) Estimat Average Glucose mg/dl Hemoglobin A1c (4.5-5.6) % Calcium (8.5-10.1) mg/dl Total Bilirubin (0.2-1) mg/dl Direct Bilirubin (0-0.2) mg/dl AST (15-37) U/L ALT (12-78) U/L Alkaline Phosphatase (45-117) U/L Total Protein (6.4-8.2) gm/dl Albumin (3.4-5.0) gm/dl Lipase (73-393) U/L
[2019-04-16] MEDS: DOCUSATE SODIUM 100 MG CAP PO SCH ×2 (12:51→21:06)
[2019-04-16] MEDS: POTASSIUM CHLORIDE 10 MEQ TABCR PO SCH (12:52)
--- NOTE | 2019-04-16 13:27 | Pharmacy Report ---
Pharmacy Glycemic Short Note 2 - Date of Service April 16, 2019 - Glycemic Short BSG Results (Last 24 hours): 04/15/19 04/15/19 04/16/19 16:22 20:30 01:57 Glucose POC Glucose 110 H 136 H 86 04/16/19 04/16/19 04/16/19 07:04 07:24 11:36 Glucose 78 POC Glucose 91 155 H OUTPATIENT ANTIDIABETIC REGIMEN: * Lantus 24 units SQ BID * Novolog 5 units SQ 2-3x daily with meals * HbA1c: 7.8% (04/16/19) ASSESSMENT: * Mr Turner received 32 units of insulin yesterday, with fairly well-controlled BSGs. * It does not appear as though the dexamethasone that was received yesterday has had a profound effect on BSGs. * Patient is scheduled to be NPO after midnight again tonight. * Will give PM Lantus based on BSG this evening. PLAN FOR INPATIENT GLYCEMIC CONTROL: * Hold outpatient oral diabetes medications * Basal insulin * Lantus 20 units SQ this morning * Lantus 10 units SQ this evening if BSG is 150mg/dL or greater * Bolus insulin * NovoLog per scale ACHS or Q6hrs while NPO * Goal Range: Low 110 mg/dL - High 140 mg/dL * Correction Factor: 20 mg/dL/unit * Nutritional / Prandial insulin per carb ratio of 1 unit per 5 grams CHO consumed PLAN FOR DISCHARGE: * Patient's A1c (7.8%) indicates adequate glycemic control. * Expect that patient may resume home regimen on discharge, as long as he does not report having episodes of hypoglycemia as an outpatient.
[2019-04-16] MEDS: LACTATED RINGER'S 1,000 ML IV SCH (13:34)
--- NOTE | 2019-04-16 14:58 | Ultrasound Report ---
ABDOMINAL ULTRASOUND, RIGHT UPPER QUADRANT HISTORY: Elevated bilirubin postoperative day 1 following cholecystectomy. COMPARISON: CT of the abdomen and pelvis and right upper quadrant ultrasound April 14, 2019. FINDINGS: There is no biliary ductal dilatation status post cholecystectomy. The common bile duct марина sures 4 mm in caliber. Liver morphology is normal. No hepatic lesions are identified. Note is made of a 5.5 x 2.7 cm hypoechoic abnormality within the cholecystectomy bed. This contains no color flow. T he pancreatic body is normal. The remainder of the pancreas is obscured by overlying bowel gas. There is no right hydronephrosis. IMPRESSION: 1. No biliary ductal dilatation status post cholecystectomy. 2. 5.5 x 2.7 cm hypoechoic abnormality within the cholecystectomy bed. While nonspecific, this favors a hematoma. Electronically signed by: Noel Park M.D. 04/16/2019 2:57 PM
--- NOTE | 2019-04-16 16:50 | Hospitalist Progress Note ---
Date of Service April 16, 2019 Assessment & Plan (1) Acute cholecystitis: Acute cholecystitis S/P laparoscopic cholecystectomy POD #1 Continue IV fluids, Zosyn Plan to transition to p.o. antibiotics upon discharge to complete 10-day course Pain control Bowel regimen to prevent constipation Appreciate surgery input Advance diet as tolerated Monitor for postop anemia Needs follow-up with surgery upon discharge Elevated total bilirubin ABD USD: No biliary ductal dilatation status post cholecystectomy. 5.5 x 2.7 cm hypoechoic abnormality within the cholecystectomy bed. While nonspecific, this favors a hematoma. N.p.o. after midnight--concern for retained biliary stone Monitor LFTs Appreciate GI input (2) Hypertensive heart disease: Blood pressure stable Continue lisinopril, terazosin, Coreg Clonidine as needed Monitor blood pressure (3) Dyslipidemia: On Crestor (4) Diabetes mellitus, type 2: Continue Lantus, insulin sliding scale Monitor blood glucose levels (5) Status post cardiac pacemaker procedure: (6) Patient is Sikh: DVT Px: SCDs for now Code Status Full Code Disposition: Plan to discharge home in stable Subjective Patient is seen and examined at bedside Reports mild abdominal soreness at surgical site + Flatus, no bowel movement yet Discussed with surgery today Total bilirubin elevated concern for CBD stone Denies any chest pain, shortness of breath, dizziness Review of Systems Review of Systems: All systems reviewed & are unremarkable except as noted in HPI & below Physical Exam Physical Exam: Physical Exam: Vitals signs as noted above General Appearance:Moderately built and nourished, no apparent distress Head: normocephalic, Atraumatic Eyes: normal inspection, EOMI Neck: supple, Trachea midline Respiratory/Chest: Normal breath sounds, +Basal Crackles Cardiovascular: S1, S2, No murmur Abdomen/GI:Soft, mild tender, Bowel sounds present, +Surgical site on dressing Extremities/Musculoskelatal:normal inspection, no edema Neurologic/Psych:AAOX3, grossly no focal neurological deficits Skin: normal color, warm Results & Data Vital Signs (Past 12 Hours) Vital Signs Temp Pulse Resp BP BP Pulse Ox 04/16/19 11:47 36.8 C 65 17 146/69 H 96 04/16/19 07:00 37.3 C 66 20 147/67 H 95 Laboratory Results Short CBC 04/16/19 Range/Units 07:04 WBC 13.73 H (4.8-10.8) K/uL Hgb 11.9 L (14.0-18.0) g/dL Hct 35.2 L (42-52) % Plt Count 118 L (130-400) K/uL BMP 04/16/19 07:04 Sodium 136 Potassium 3.3 L Chloride 103 Carbon Dioxide 28 BUN 13 Creatinine 1.00 Glucose 78 Calcium 8.2 L Liver Function 04/16/19 Range/Units 07:04 Total Bilirubin 1.9 H (0.2-1) mg/dl Direct Bilirubin 0.4 H (0-0.2) mg/dl AST 27 (15-37) U/L ALT 27 (12-78) U/L Alkaline Phosphatase 54 (45-117) U/L Albumin 2.9 L (3.4-5.0) gm/dl Diagnostic Findings ABD USD: 1. No biliary ductal dilatation status post cholecystectomy. 2. 5.5 x 2.7 cm hypoechoic abnormality within the cholecystectomy bed. While nonspecific, this favors a hematoma.
--- NOTE | 2019-04-16 17:57 | Anesthesiology Consultation ---
Date of Service April 16, 2019 Assessment & Plan Chart Review Chart Review: Acceptable Risk for Surgery and Patient NOT seen in Pre Admission Testing Consults Requested none ASA ASA3 Proposed Anesthesia Anesthesia Type: General History Surgery Operation Date: 04/15/19 07:15 Proposed Procedures p Laparoscopic Cholecystectomy - Lroi Mcclure MD Operation Date: 04/17/19 14:40 Proposed Procedures p Endoscopic Retrograde Cholangiopancreato - Del Hanley s Upper Endoscopic Ultrasonography - Del Hanley Height/Weight Height: 5 ft 8 in Weight: 90.4 kg Allergies Allergy/AdvReac Type Severity Reaction Status Date / Time No Known Allergies Allergy Unverified 04/14/19 02:29 Medications Home Medications Medication Instructions Recorded Confirmed Last Taken Lantus Solostar U-100 Insulin 24 units SUBCUT BID 04/14/19 04/14/19 04/13/19 alprazolam 0.25 mg PO TID PRN 04/14/19 04/14/19 Unknown aspirin 81 mg PO DAILY 04/14/19 04/14/19 Unknown carvedilol 25 mg PO BID 04/14/19 04/14/19 Unknown clonidine HCl 0.1 mg PO Q6H PRN 04/14/19 04/14/19 Unknown insulin aspart U-100 [Novolog 5 unit SUBCUT BID 04/14/19 04/14/19 04/13/19 Flexpen U-100 Insulin] lisinopril-hydrochlorothiazide 2 tab PO DAILY 04/14/19 04/14/19 Unknown potassium chloride 10 meq PO DAILY 04/14/19 04/14/19 Unknown rosuvastatin 20 mg PO HS 04/14/19 04/14/19 Unknown terazosin 5 mg PO DAILY 04/14/19 04/14/19 Unknown Active Medications Generic Name Dose Route Start Last Admin Trade Name Freq PRN Reason Stop Dose Admin Acetaminophen 650 mg 04/14/19 09:16 04/16/19 09:31 Tylenol PO 05/14/19 09:15 650 mg Q4H PRN Administration pain/fever Al Hydrox/Mg Hydrox/Simethicone 30 ml 04/14/19 09:16 04/15/19 16:16 Maalox PO 05/14/19 09:15 30 ml Q6H PRN Administration Dyspepsia Alprazolam 0.25 mg 04/14/19 16:41 04/16/19 09:32 Xanax PO 05/14/19 16:40 0.25 mg TID PRN Administration Anxiety Aspirin 81 mg 04/16/19 09:00 04/16/19 09:33 Ecotrin Ectab PO 05/16/19 08:59 81 mg DAILY DAVE Administration Carvedilol 25 mg 04/14/19 09:16 04/16/19 09:33 Coreg PO 05/14/19 09:15 25 mg BID DAVE Administration Clonidine HCl 0.1 mg 04/14/19 09:16 04/15/19 17:46 Catapres PO 05/14/19 09:15 0.1 mg Q6H PRN Administration high b/p/anxiety Docusate Sodium 100 mg 04/16/19 11:00 04/16/19 12:51 Colace PO 05/16/19 10:59 100 mg BID DAVE Administration Lisinopril/HCTZ 2 tab 04/14/19 09:16 04/16/19 09:34 Prinzide 20/12.5mg PO 05/14/19 09:15 2 tab DAILY DAVE Administration Piperacillin Sod/Tazobactam 115 mls @ 28.75 mls/hr 04/15/19 16:00 04/16/19 16:40 Sod 3.375 gm/ Dextrose IV 04/17/19 15:59 28.8 mls/hr Q8H DAVE Administration Protocol Lactated Ringer's 1,000 mls @ 80 mls/hr 04/16/19 13:00 04/16/19 13:34 Lr IV 05/16/19 12:59 80 mls/hr .[id number] DAVE Administration Insulin Aspart 0 units 04/15/19 12:30 04/16/19 17:34 Novolog Flexpen SC 05/15/19 12:29 Not Given ACHS DAVE Protocol Ioversol 100 ml 04/14/19 03:43 04/14/19 03:43 Optiray 320 100ml IV 04/18/19 03:42 93 ml ONCE PRN Administration Interaction Checking Potassium Chloride 10 meq 04/14/19 09:16 04/16/19 12:52 Klor-Con M10 PO 05/14/19 09:15 10 meq DAILY DAVE Administration Rosuvastatin Calcium 20 mg 04/14/19 21:00 04/15/19 20:30 Crestor PO 05/14/19 20:59 20 mg HS DAVE Administration Terazosin HCl 5 mg 04/14/19 09:16 04/16/19 09:34 Hytrin PO 05/14/19 09:15 5 mg DAILY DAVE Administration NPO Date Last Intake of Fluids: 04/14/19 Time Last Intake of Fluids: 23:20 Date Last Intake of Solids: 04/14/19 Time Last Intake of Solids: 17:00 Past Medical History Medical History Abdominal pain (Acute) Acute cholecystitis (Acute) Bradyarrhythmia (Acute) Hypertensive heart disease (Chronic) Dyslipidemia (Chronic) Paroxysmal atrial tachycardia (Chronic) UGI bleed (Resolved) "Dieulafoy lesion of stomach" Diabetes mellitus, type 2 (Chronic) Paroxysmal ventricular tachycardia (Chronic) Patient is Cheondoism (Chronic) "no blood products" Hypertension (Acute) Anemia Exercise / Class Metabolic Activity III < 4 Walking/Shop/Light housework Past Surgical History Surgical History Status post cardiac pacemaker procedure (Chronic) "dual chamber pacemaker 03/09/16" Past Anesthesia History No Hx of Anesthesia Complications and No Family Hx of Anesthesia Complications History of PONV No Hx of PONV and No Hx of Motion Sickness Social History Smoking Status: Never smoker Hx Alcohol Use: No Hx Substance Use: No Physical Exam Vital Signs Last Vital Signs Temp 36.8 C 04/16/19 11:47 Pulse 65 04/16/19 11:47 Resp 17 04/16/19 11:47 BP 146/69 H 04/16/19 11:47 Pulse Ox 96 04/16/19 11:47 Testing Laboratory Results 04/16/19 07:04 04/16/19 07:04 Hemoglobin A1c 7.8 % (4.5-5.6) H 04/16/19 07:04 04/16/19 04/16/19 04/16/19 17:28 16:59 11:36 POC Glucose 76 66 L* 155 H 04/16/19 07:24 POC Glucose 91 Electrocardiogram Date: 04/14/19 Findings: + pertinent finding (a paced rhythm at 91;w/prolonged av conduction;LAFB)
[2019-04-16] MEDS: ROSUVASTATIN CALCIUM 20 MG TAB PO SCH (21:06)
[2019-04-17] MEDS: PIPERACILLIN/TAZOBACTAM 3.375 GM in DEXTROSE 5% 100 ML IV SCH ×3 (00:36→17:54)
[2019-04-17] MEDS: LACTATED RINGER'S 1,000 ML IV SCH ×2 (02:32→16:16)
[2019-04-17] MEDS: CARVEDILOL 25 MG TAB PO SCH ×2 (05:31→20:34)
[2019-04-17 06:07] LABS: Basophils # (auto) 0.01 K/uL (0-0.2); Basophils % (auto) 0.1 %; Eosinophils # (auto) 0.08 K/uL (0-0.5); Eosinophils % (auto) 0.8 %; Hematocrit (blood only) 34.8 % (42-52); Hemoglobin 11.8 g/dL (14.0-18.0); Immature Granulocytes # (auto) 0.01 K/uL (0.00-0.02); Immature Granulocytes % (auto) 0.1 %; Lymphocytes % (auto) 11.7 %; Mean Corpuscular Hemoglobin 28.9 pg (25-34); Mean Corpuscular Hgb Conc 33.9 g/dL (32-36); Mean Corpuscular Volume 85.1 fL (80-100); Mean Platelet Volume 10.2 fL (7.4-10.4); Monocytes # (auto) 0.93 K/uL (0.11-0.59); Neutrophils # (auto) 8.06 K/uL (1.4-6.5); Neutrophils % (auto) 78.3 %; Platelet Count 126 K/uL (130-400); RDW Coefficient of Variation 13.5 % (11.5-14.5); RDW Standard Deviation 42.2 fL (36.4-46.3); Red Blood Count 4.09 M/uL (4.7-6.1); White Blood Count 10.29 K/uL (4.8-10.8)
[2019-04-17 06:34] LABS: Albumin Level 2.8 gm/dl (3.4-5.0); BUN Creatinine Ratio 13.4 (10-20); Calcium 8.5 mg/dl (8.5-10.1); Creatinine Clr Calc Pharmacy 80.4 ml/min; Est GFR (African American) 98.1; Est GFR (Non-African American) 84.6; Magnesium 1.8 mg/dl (1.8-2.4); Potassium 3.5 mmol/L (3.5-5.1)
[2019-04-17 06:36] LABS: Albumin Globulin Ratio 0.8 (0.9-2); Bilirubin,Total 1.9 mg/dl (0.2-1); Globulin 3.6 gm/dl (2.5-4.0); Total Protein 6.4 gm/dl (6.4-8.2)
[2019-04-17] MEDS ORDERED: LISINOPRIL 10 MG TAB PO SCH (06:50)
[2019-04-17] MEDS ORDERED: TERAZOSIN HCL 5 MG CAP PO SCH (07:00)
[2019-04-17] MEDS: INSULIN ASPART 100 UNITS/ML 3 ML PEN SC SCH ×4 (08:29→20:57)
[2019-04-17] MEDS: ASPIRIN 81 MG ECTAB PO SCH (08:50)
[2019-04-17] MEDS: DOCUSATE SODIUM 100 MG CAP PO SCH ×2 (08:51→20:35)
[2019-04-17] MEDS: POTASSIUM CHLORIDE 10 MEQ TABCR PO SCH (08:51)
[2019-04-17] MEDS: ALPRAZolam 0.25 MG TABLET PO PRN ×2 (08:58→18:04)
--- NOTE | 2019-04-17 09:08 | Surgery Progress Note ---
Date of Service April 17, 2019 Assessment & Plan (1) Abdominal pain: POD # 2 s/p laparoscopic cholecystectomy - afebrile - leukocytosis resolved - post op pain minimal, controlled with PO Tylenol - t. bili stable at 1.9 (1.2 preop), LFTS wnl - Abdominal US 04/16/19 showing 4 mm CBD and 5.5 x 2.7 cm hypoechoic abnormality in cholecystectomy bed favoring hematoma - H&H stable at 11.8/34.8 - There was some intraoperative bleeding of liver bed given amount of inflammation Plan: Discussed US and t. bili with GI service, likely going to recommend to continue with EUS today with Dr. Hanley. Will await final decision Doing well from surgical standpoint, if no plan for EUS can go home this afternoon If having EUS today will need pacemaker interrogation appt rescheduled Continue NPO for now Continue IV Zosyn, transition to oral abx on discharge for total of 10 days Continue SCDs, home meds, incentive spirometry, and ambulation Dr. Mcclure has seen patient, agrees with above Subjective feeling good tenderness at incision sites liquid bowel movement last night no n/v, tolerated DM diet last night ready to get out of here Physical Exam Constitutional: WD/WN, vitals as above no acute distress Gastrointestinal (Abdomen): Inspection/Auscultation: abdomen normal to inspection; abdomen not distended Percussion/Palpation: abdomen soft; abdomen nontender, no guarding and abdomen not rigid Skin: no rashes, warm and dry + incision (clean/dry/intact) Psychiatric: A+Ox3, euthymic affect Results & Data Vital Signs (Past 12 Hours) Vital Signs Temp Pulse Resp BP BP Pulse Ox 04/17/19 06:58 37.1 C 65 20 196/83 H 94 04/17/19 03:00 37.2 C 74 20 183/77 H 94 04/16/19 23:15 37.6 C H 70 20 194/81 H 95 Laboratory Results 04/17/19 04/17/19 04/16/19 Range/Units 05:49 05:49 20:36 WBC 10.29 (4.8-10.8) K/uL RBC 4.09 L (4.7-6.1) M/uL Hgb 11.8 L (14.0-18.0) g/dL Hct 34.8 L (42-52) % MCV 85.1 (80-100) fL MCH 28.9 (25-34) pg MCHC 33.9 (32-36) g/dL RDW Std Deviation 42.2 (36.4-46.3) fL RDW Coeff of Drake 13.5 (11.5-14.5) % Plt Count 126 L (130-400) K/uL MPV 10.2 (7.4-10.4) fL Immature Gran % (Auto) 0.1 % Neut % (Auto) 78.3 % Lymph % (Auto) 11.7 % [place] % (Auto) 9.0 % Eos % (Auto) 0.8 % Baso % (Auto) 0.1 % Immature Gran # (Auto) 0.01 (0.00-0.02) K/uL Neut # (Auto) 8.06 H (1.4-6.5) K/uL Lymph # (Auto) 1.20 (1.2-3.4) K/uL [place] # (Auto) 0.93 H (0.11-0.59) K/uL Eos # (Auto) 0.08 (0-0.5) K/uL Baso # (Auto) 0.01 (0-0.2) K/uL Sodium 136 (136-145) mmol/L Potassium 3.5 (3.5-5.1) mmol/L Chloride 103 (98-107) mmol/L Carbon Dioxide 27 (21-32) mmol/L Anion Gap 7.0 (3-11) BUN 12 (7-18) mg/dl Creatinine 0.88 (0.6-1.4) mg/dl Est Cr Clr Drug Dosing 80.4 ml/min Est GFR ( Amer) 98.1 Est GFR (Non-Af Amer) 84.6 BUN/Creatinine Ratio 13.4 (10-20) Glucose 127 H (70-99) mg/dl POC Glucose 136 H (70-99) Calcium 8.5 (8.5-10.1) mg/dl Magnesium 1.8 (1.8-2.4) mg/dl Total Bilirubin 1.9 H (0.2-1) mg/dl Direct Bilirubin (0-0.2) mg/dl AST 21 (15-37) U/L ALT 24 (12-78) U/L Alkaline Phosphatase 55 (45-117) U/L Total Protein 6.4 (6.4-8.2) gm/dl Albumin 2.8 L (3.4-5.0) gm/dl Globulin 3.6 (2.5-4.0) gm/dl Albumin/Globulin Ratio 0.8 L (0.9-2) 04/16/19 04/16/19 04/16/19 Range/Units 17:28 16:59 11:36 WBC (4.8-10.8) K/uL RBC (4.7-6.1) M/uL Hgb (14.0-18.0) g/dL Hct (42-52) % MCV (80-100) fL MCH (25-34) pg MCHC (32-36) g/dL RDW Std Deviation (36.4-46.3) fL RDW Coeff of Drake (11.5-14.5) % Plt Count (130-400) K/uL MPV (7.4-10.4) fL Immature Gran % (Auto) % Neut % (Auto) % Lymph % (Auto) % [place] % (Auto) % Eos % (Auto) % Baso % (Auto) % Immature Gran # (Auto) (0.00-0.02) K/uL Neut # (Auto) (1.4-6.5) K/uL Lymph # (Auto) (1.2-3.4) K/uL [place] # (Auto) (0.11-0.59) K/uL Eos # (Auto) (0-0.5) K/uL Baso # (Auto) (0-0.2) K/uL Sodium (136-145) mmol/L Potassium (3.5-5.1) mmol/L Chloride (98-107) mmol/L Carbon Dioxide (21-32) mmol/L Anion Gap (3-11) BUN (7-18) mg/dl Creatinine (0.6-1.4) mg/dl Est Cr Clr Drug Dosing ml/min Est GFR ( Amer) Est GFR (Non-Af Amer) BUN/Creatinine Ratio (10-20) Glucose (70-99) mg/dl POC Glucose 76 66 L* 155 H (70-99) Calcium (8.5-10.1) mg/dl Magnesium (1.8-2.4) mg/dl Total Bilirubin (0.2-1) mg/dl Direct Bilirubin (0-0.2) mg/dl AST (15-37) U/L ALT (12-78) U/L Alkaline Phosphatase (45-117) U/L Total Protein (6.4-8.2) gm/dl Albumin (3.4-5.0) gm/dl Globulin (2.5-4.0) gm/dl Albumin/Globulin Ratio (0.9-2) 04/16/19 Range/Units 07:04 WBC (4.8-10.8) K/uL RBC (4.7-6.1) M/uL Hgb (14.0-18.0) g/dL Hct (42-52) % MCV (80-100) fL MCH (25-34) pg MCHC (32-36) g/dL RDW Std Deviation (36.4-46.3) fL RDW Coeff of Drake (11.5-14.5) % Plt Count (130-400) K/uL MPV (7.4-10.4) fL Immature Gran % (Auto) % Neut % (Auto) % Lymph % (Auto) % [place] % (Auto) % Eos % (Auto) % Baso % (Auto) % Immature Gran # (Auto) (0.00-0.02) K/uL Neut # (Auto) (1.4-6.5) K/uL Lymph # (Auto) (1.2-3.4) K/uL [place] # (Auto) (0.11-0.59) K/uL Eos # (Auto) (0-0.5) K/uL Baso # (Auto) (0-0.2) K/uL Sodium (136-145) mmol/L Potassium (3.5-5.1) mmol/L Chloride (98-107) mmol/L Carbon Dioxide (21-32) mmol/L Anion Gap (3-11) BUN (7-18) mg/dl Creatinine (0.6-1.4) mg/dl Est Cr Clr Drug Dosing ml/min Est GFR ( Amer) Est GFR (Non-Af Amer) BUN/Creatinine Ratio (10-20) Glucose (70-99) mg/dl POC Glucose (70-99) Calcium (8.5-10.1) mg/dl Magnesium (1.8-2.4) mg/dl Total Bilirubin 1.9 H (0.2-1) mg/dl Direct Bilirubin 0.4 H (0-0.2) mg/dl AST 27 (15-37) U/L ALT 27 (12-78) U/L Alkaline Phosphatase 54 (45-117) U/L Total Protein 6.2 L (6.4-8.2) gm/dl Albumin 2.9 L (3.4-5.0) gm/dl Globulin (2.5-4.0) gm/dl Albumin/Globulin Ratio (0.9-2) Diagnostic Findings ABDOMINAL ULTRASOUND, RIGHT UPPER QUADRANT HISTORY: Elevated bilirubin postoperative day 1 following cholecystectomy. COMPARISON: CT of the abdomen and pelvis and right upper quadrant ultrasound April 14, 2019. FINDINGS: There is no biliary ductal dilatation status post cholecystectomy. The common bile duct measures 4 mm in caliber. Liver morphology is normal. No hepatic lesions are identified. Note is made of a 5.5 x 2.7 cm hypoechoic abnormality within the cholecystectomy bed. This contains no color flow. The pancreatic body is normal. The remainder of the pancreas is obscured by overlying bowel gas. There is no right hydronephrosis. IMPRESSION: 1. No biliary ductal dilatation status post cholecystectomy. 2. 5.5 x 2.7 cm hypoechoic abnormality within the cholecystectomy bed. While nonspecific, this favors a hematoma. (1) Abdominal pain Abdominal location: upper abdomen, unspecified Qualified Code(s): R10.10 - Upper abdominal pain, unspecified
--- NOTE | 2019-04-17 11:17 | Gastroenterology Progress Note ---
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 This AM, slight bump in Tbili was noted w/ normal transaminases. LFTs unchanged overnight, ABD Us without biliary ductal changes, but hematoma in GB bed NPO EUS today for evaluation +/- ERCP if indicated Thank you for allowing us to participate in the care of this patient. Please call with any acute changes, questions or concerns. Please see addendum below with additional recommendation from my supervising physician. Supervising Physician Co-Signing Physician Notes I saw and evaluated the patient. He has an elevation of his bilirubin after cholecystectomy. Given the persistent elevation we are planning to do upper endoscopy with endoscopic ultrasound today to evaluate for evidence of retained common bile duct stones. If positive we would then proceed with ERCP for gallstone extraction. Unfortunately as the patient has a pacemaker he is not a candidate for MRCP. The patient and I have discussed the risks and benefits of the procedures to include bleeding, infection, perforation, pain, pancreatitis and failed biliary cannulation. Subjective Pt was seen and evaluated, chart reviewed at bedside Is NPO for EUS for eval of elevated TB, recent cholecystectomy No concerns this AM No abd pain No nausea,vomiting Tolerated PO yesterday Moving bowels No black or bloody stools. Review of Systems Constitutional: no fever, no chills and no fatigue Respiratory: no cough, no dyspnea and no wheezing Cardiovascular: no chest pain, no radiating jaw, neck or arm pain and no dyspnea on exertion Gastrointestinal: no abdominal pain, no belching, no nausea, no coffee ground emesis, no hematemesis, no change in bowel habits, no blood in stools and no melena Physical Exam Constitutional: WD/WN, vitals as above Respiratory: normal respiratory effort, lungs clear to auscultation Cardiovascular: Rate/Rhythm: regular rate and regular rhythm Gastrointestinal (Abdomen): normal bowel sounds, soft, nontender, no hepatosplenomegaly Results & Data Vital Signs (Past 12 Hours) Vital Signs Temp Pulse Resp BP BP Pulse Ox 04/17/19 06:58 37.1 C 65 20 196/83 H 94 04/17/19 03:00 37.2 C 74 20 183/77 H 94 Laboratory Results 04/17/19 04/17/19 04/16/19 Range/Units 05:49 05:49 20:36 WBC 10.29 (4.8-10.8) K/uL RBC 4.09 L (4.7-6.1) M/uL Hgb 11.8 L (14.0-18.0) g/dL Hct 34.8 L (42-52) % MCV 85.1 (80-100) fL MCH 28.9 (25-34) pg MCHC 33.9 (32-36) g/dL RDW Std Deviation 42.2 (36.4-46.3) fL RDW Coeff of Drake 13.5 (11.5-14.5) % Plt Count 126 L (130-400) K/uL MPV 10.2 (7.4-10.4) fL Immature Gran % (Auto) 0.1 % Neut % (Auto) 78.3 % Lymph % (Auto) 11.7 % [place] % (Auto) 9.0 % Eos % (Auto) 0.8 % Baso % (Auto) 0.1 % Immature Gran # (Auto) 0.01 (0.00-0.02) K/uL Neut # (Auto) 8.06 H (1.4-6.5) K/uL Lymph # (Auto) 1.20 (1.2-3.4) K/uL [place] # (Auto) 0.93 H (0.11-0.59) K/uL Eos # (Auto) 0.08 (0-0.5) K/uL Baso # (Auto) 0.01 (0-0.2) K/uL Sodium 136 (136-145) mmol/L Potassium 3.5 (3.5-5.1) mmol/L Chloride 103 (98-107) mmol/L Carbon Dioxide 27 (21-32) mmol/L Anion Gap 7.0 (3-11) BUN 12 (7-18) mg/dl Creatinine 0.88 (0.6-1.4) mg/dl Est Cr Clr Drug Dosing 80.4 ml/min Est GFR ( Amer) 98.1 Est GFR (Non-Af Amer) 84.6 BUN/Creatinine Ratio 13.4 (10-20) Glucose 127 H (70-99) mg/dl POC Glucose 136 H (70-99) Calcium 8.5 (8.5-10.1) mg/dl Magnesium 1.8 (1.8-2.4) mg/dl Total Bilirubin 1.9 H (0.2-1) mg/dl AST 21 (15-37) U/L ALT 24 (12-78) U/L Alkaline Phosphatase 55 (45-117) U/L Total Protein 6.4 (6.4-8.2) gm/dl Albumin 2.8 L (3.4-5.0) gm/dl Globulin 3.6 (2.5-4.0) gm/dl Albumin/Globulin Ratio 0.8 L (0.9-2) 04/16/19 04/16/19 04/16/19 Range/Units 17:28 16:59 11:36 WBC (4.8-10.8) K/uL RBC (4.7-6.1) M/uL Hgb (14.0-18.0) g/dL Hct (42-52) % MCV (80-100) fL MCH (25-34) pg MCHC (32-36) g/dL RDW Std Deviation (36.4-46.3) fL RDW Coeff of Drake (11.5-14.5) % Plt Count (130-400) K/uL MPV (7.4-10.4) fL Immature Gran % (Auto) % Neut % (Auto) % Lymph % (Auto) % [place] % (Auto) % Eos % (Auto) % Baso % (Auto) % Immature Gran # (Auto) (0.00-0.02) K/uL Neut # (Auto) (1.4-6.5) K/uL Lymph # (Auto) (1.2-3.4) K/uL [place] # (Auto) (0.11-0.59) K/uL Eos # (Auto) (0-0.5) K/uL Baso # (Auto) (0-0.2) K/uL Sodium (136-145) mmol/L Potassium (3.5-5.1) mmol/L Chloride (98-107) mmol/L Carbon Dioxide (21-32) mmol/L Anion Gap (3-11) BUN (7-18) mg/dl Creatinine (0.6-1.4) mg/dl Est Cr Clr Drug Dosing ml/min Est GFR ( Amer) Est GFR (Non-Af Amer) BUN/Creatinine Ratio (10-20) Glucose (70-99) mg/dl POC Glucose 76 66 L* 155 H (70-99) Calcium (8.5-10.1) mg/dl Magnesium (1.8-2.4) mg/dl Total Bilirubin (0.2-1) mg/dl AST (15-37) U/L ALT (12-78) U/L Alkaline Phosphatase (45-117) U/L Total Protein (6.4-8.2) gm/dl Albumin (3.4-5.0) gm/dl Globulin (2.5-4.0) gm/dl Albumin/Globulin Ratio (0.9-2)
[2019-04-17] MEDS ORDERED: INSULIN GLARGINE SOLOSTAR 100 UNITS/ML 3 ML PEN SC SCH ×2 (12:00→21:00)
[2019-04-17] MEDS: cloNIDine HCl 0.1 MG TAB PO PRN ×2 (12:11→18:05)
[2019-04-17] MEDS ORDERED: PROPOFOL IV EMULSION 10 MG/ML 20 ML VIAL IV ONE (13:25)
[2019-04-17] MEDS ORDERED: ROCURONIUM BROMIDE 10 MG/ML 5 ML VIAL ONE ×5 (13:25→14:38)
[2019-04-17] MEDS ORDERED: LIDOCAINE HCL 2% 2 ML VIAL/AMP(20MG/ML) INFIL ONE (13:25)
[2019-04-17] MEDS ORDERED: fentaNYL citrate 100 MCG/2 ML VIAL ONE (13:25)
[2019-04-17] MEDS ORDERED: ONDANSETRON INJ 2 MG/ML 2 ML VIAL ONE (13:25)
--- NOTE | 2019-04-17 13:36 | Pharmacy Report ---
Pharmacy Glycemic Short Note 2 - Date of Service April 17, 2019 - Glycemic Short BSG Results (Last 24 hours): 04/16/19 04/16/19 04/16/19 16:59 17:28 20:36 Glucose POC Glucose 66 L* 76 136 H 04/17/19 04/17/19 04/17/19 05:49 07:35 11:35 Glucose 127 H POC Glucose 137 H 159 H OUTPATIENT ANTIDIABETIC REGIMEN: * Lantus 24 units SQ BID * Novolog 5 units SQ 2-3x daily with meals * HbA1c: 7.8% (04/16/19) ASSESSMENT: * Mr Turner is currently NPO given clinical concern for retained biliary stone * Patient received 37 units of insulin yesterday, with a hypoglycemic event at dinner * Will loosen CF/CR and give PM Lantus based on BSG this evening PLAN FOR INPATIENT GLYCEMIC CONTROL: * Hold outpatient oral diabetes medications * Basal insulin * Lantus 20 units SQ at noon * Lantus 10 units SQ this evening if BSG is 180mg/dL or greater * Bolus insulin * NovoLog per scale ACHS or Q6hrs while NPO * Goal Range: Low 110 mg/dL - High 140 mg/dL * Correction Factor: 25 mg/dL/unit * Nutritional / Prandial insulin per carb ratio of 1 unit per 9 grams CHO consumed PLAN FOR DISCHARGE: * Patient's A1c (7.8%) indicates adequate glycemic control. * Expect that patient may resume home regimen on discharge, as long as he does not report having episodes of hypoglycemia as an outpatient.
[2019-04-17] MEDS ORDERED: INDOMETHACIN 50 MG SUPP PR ONE (14:00)
[2019-04-17] MEDS ORDERED: ePHEDrine sulfate 50 MG/ML AMP IV PRN (14:08)
[2019-04-17] MEDS ORDERED: ONDANSETRON INJ 2 MG/ML 2 ML VIAL IV PRN (14:08)
[2019-04-17] MEDS ORDERED: ATROPINE SULFATE 0.1 MG/ML 10ML SYR IV PRN (14:08)
[2019-04-17] MEDS ORDERED: fentaNYL citrate 100 MCG/2 ML VIAL IV PRN (14:08)
[2019-04-17] MEDS ORDERED: PROMETHAZINE HCL 6.25 MG in SODIUM CHLORIDE 0.9% 50 ML IV PRN (14:08)
[2019-04-17] MEDS ORDERED: NEOSTIGMINE METHYLSULFATE 5 MG/5 ML SYR ONE (14:34)
[2019-04-17] MEDS ORDERED: GLYCOPYRROLATE 0.2 MG/ML VIAL ONE (14:34)
--- NOTE | 2019-04-17 14:44 | Post Operative Brief Note ---
Immediate Post Op Note v1 Date of Surgery April 17, 2019 Pre & Post Diagnosis Operation Date: 04/15/19 07:15 Pre-Op Diagnosis: ACUTE CHOLECYSTITIS Post-Op Diagnosis: ACUTE CHOLECYSTITIS Operation Date: 04/17/19 14:40 Pre-Op Diagnosis: jaundice Post-Op Diagnosis: hematoma, pancreatic cyst Procedure Operation Date: 04/15/19 07:15 Actual Procedures p Laparoscopic Cholecystectomy(Not Applicable) - Lori Mcclure MD Operation Date: 04/17/19 14:40 Actual Procedures p Esophagogastroduodenoscopy with biopsies; Upper Endoscopic Ultrasonography(Not Applicable) - Del Hanley Surgeon Del Hanley Display Card Writer BEAR Gallagher Estimated Blood Loss 0 Findings Consistent with Post-Op Diagnosis Specimens gallbladder Anesthesia Type General
--- NOTE | 2019-04-17 14:57 | GI REPORT ---
Patient Name: Sheng Turner Procedure Date: 04/17/2019 2:25 PM Date of : 1945 Admit Type: Inpatient Age: 73 Gender: Male Attending MD: Del Hanley DO Procedure: Upper EUS Providers: Del Hanley DO Referring MD: Azar Nixon Md, Nory Martinez Md, Kanu Bills Indications: Elevated bilirubin Medicines: General Anesthesia Complications: No immediate complications. Estimated blood loss: Minimal. Estimated Blood Loss: Estimated blood loss was minimal. Procedure: Pre-Anesthesia Assessment: - Prior to the procedure, a History and Physical was performed, and patient medications, allergies and sensitivities were reviewed. The patient's tolerance of previous anesthesia was reviewed. - The risks and benefits of the procedure and the sedation options and risks were discussed with the patient. All questions were answered and informed consent was obtained. - Patient identification and proposed procedure were verified prior to the procedure by the physician, the nurse and the chemical research engineer. The procedure was verified in the procedure room. - Pre-procedure physical examination revealed no contraindications to sedation. - ASA Grade Assessment: IV - A patient with severe systemic disease that is a constant threat to life. - After reviewing the risks and benefits, the patient was deemed in satisfactory condition to undergo the procedure. - The anesthesia plan was to use general anesthesia. - Immediately prior to administration of medications, the patient was re-assessed for adequacy to receive sedatives. - The heart rate, respiratory rate, oxygen saturations, blood pressure, adequacy of pulmonary ventilation, and response to care were monitored throughout the procedure. - The physical status of the patient was re-assessed after the procedure. After obtaining informed consent, the endoscope was passed under direct vision. Throughout the procedure, the patient's blood pressure, pulse, and oxygen saturations were monitored continuously. The Endosonoscope was introduced through the mouth, and advanced to the third part of duodenum. The upper EUS was accomplished without difficulty. The patient tolerated the procedure well. Findings: ENDOSONOGRAPHIC FINDING: : Periampullary diverticulum Evidence of a previous cholecystectomy was identified endosonographically. There was no sign of significant endosonographic abnormality in the left lobe of the liver. Homogeneous parenchyma, no focal pathology and no masses were identified. No lymphadenopathy seen. There was no sign of significant endosonographic abnormality in the left adrenal gland. No adrenal gland enlargement was identified. There was no sign of significant endosonographic abnormality in the pancreatic body, pancreatic tail, pancreatic neck and main pancreatic duct. The pancreatic duct measured up to 2 mm in diameter. No masses, no cysts, the pancreatic duct was thin in caliber. A hypoechoic lesion suggestive of a cyst was identified in the pancreatic head. It is not in obvious communication with the pancreatic duct. The lesion measured 18 mm by 18 mm in maximal cross-sectional diameter. There were 3 compartments thinly septated. The outer wall of the lesion was not seen. There was no associated mass. There was no internal debris within the fluid-filled cavity. Given the recent clinical history, FNA was not perfomed as this may represent a new pseudocyst. There was no sign of significant endosonographic abnormality in the common bile duct. The maximum diameter of the duct was 5 mm. No stones, no biliary sludge and ducts of normal caliber were identified. A 40 x 28 mm collection of fluid, visualized as an oval hypoechoic structure, was found in the gallbladder fossa. This is consistent with the hematoma as suggeted on other imaging. Impression: - Evidence of a cholecystectomy. - There was no evidence of significant pathology in the left lobe of the liver. - Endosonographic images of the left adrenal gland were unremarkable. - There was no sign of significant pathology in the pancreatic body, pancreatic tail, pancreatic neck and main pancreatic duct. - A cystic lesion was seen in the pancreatic head. - There was no sign of significant pathology in the common bile duct. - Perihepatic hematoma. - No specimens collected. Recommendation: - [facility] care. - Advance diet as tolerated. - Perform CT scan (computed tomography) of the abdomen with contrast in 3 months for follow-up of the pancreatic cyst. Del Hanley D.O. Del Hanley DO 04/17/2019 2:57:16 PM This report has been signed electronically. Note Initiated On: 04/17/2019 2:25 PM Number of Addenda: 0 I attest to the content of the Intraoperative Record and orders documented therein, exceptions below {[id number]}
--- NOTE | 2019-04-17 14:59 | GI REPORT ---
Patient Name: Sheng Turner Procedure Date: 04/17/2019 2:18 PM Date of : 1945 Admit Type: Inpatient Age: 73 Gender: Male Attending MD: Del Hanley DO Procedure: Upper GI endoscopy Providers: Del Hanley DO Referring MD: Azar Nixon Md, Nory Martinez Md, Kanu Bills Indications: Epigastric abdominal pain Medicines: General Anesthesia Complications: No immediate complications. Estimated blood loss: Minimal. Estimated Blood Loss: Estimated blood loss was minimal. Procedure: Pre-Anesthesia Assessment: - Prior to the procedure, a History and Physical was performed, and patient medications, allergies and sensitivities were reviewed. The patient's tolerance of previous anesthesia was reviewed. - ASA Grade Assessment: III - A patient with severe systemic disease. - After reviewing the risks and benefits, the patient was deemed in satisfactory condition to undergo the procedure. - The anesthesia plan was to use general anesthesia. - Immediately prior to administration of medications, the patient was re-assessed for adequacy to receive sedatives. - The heart rate, respiratory rate, oxygen saturations, blood pressure, adequacy of pulmonary ventilation, and response to care were monitored throughout the procedure. - The physical status of the patient was re-assessed after the procedure. After obtaining informed consent, the endoscope was passed under direct vision. Throughout the procedure, the patient's blood pressure, pulse, and oxygen saturations were monitored continuously. The Endoscope was introduced through the mouth, and advanced to the third part of duodenum. The upper GI endoscopy was accomplished without difficulty. The patient tolerated the procedure well. Findings: LA Grade B (one or more mucosal breaks greater than 5 mm, not extending between the tops of two mucosal folds) esophagitis with no bleeding was found in the lower third of the esophagus. Diffuse moderate inflammation characterized by congestion (edema), erythema, granularity and aphthous ulcerations was found in the entire examined stomach. Biopsies were taken with a cold forceps for histology. The pathology specimen was placed into Bottle A. Estimated blood loss was minimal. Diffuse mild inflammation characterized by congestion (edema), erythema, granularity and aphthous ulcerations was found in the duodenal bulb. The second portion of the duodenum and third portion of the duodenum were normal. Impression: - LA Grade B reflux esophagitis. - Gastritis. Biopsied. - Duodenitis. - Normal second portion of the duodenum and third portion of the duodenum. Recommendation: - Perform an upper endoscopic ultrasound (UEUS) today. - Use Prilosec (omeprazole) 20 mg PO daily. - Repeat upper endoscopy in 3 months for surveillance. Del Hanley D.O. Del Hanley, 04/17/2019 2:59:22 PM This report has been signed electronically. Note Initiated On: 04/17/2019 2:18 PM Number of Addenda: 0 I attest to the content of the Intraoperative Record and orders documented therein, exceptions below {[id number]}
--- NOTE | 2019-04-17 15:01 | Communication Note ---
Date of Service: April 17, 2019 The patient underwent upper endoscopy and endoscopic ultrasound this afternoon. Findings: Esophagitis Diffuse gastritis with aphthous ulcerations 18 mm pancreatic cyst 40 mm hematoma in region of gallbladder fossa 5 mm common bile duct without evidence of retained common bile duct stones Recommendations Omeprazole 20 mg/day Repeat upper endoscopy and endoscopic ultrasound in 3 months
--- NOTE | 2019-04-17 15:02 | Hospitalist Progress Note ---
Date of Service April 17, 2019 Assessment & Plan (1) Acute cholecystitis: Acute cholecystitis S/P laparoscopic cholecystectomy POD #2 Continue IV Zosyn Day #3 S/P EUS:Esophagitis. Diffuse gastritis with aphthous ulcerations. 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 40 mm hematoma in region of gallbladder fossa. 5 mm common bile duct without evidence of retained common bile duct stones Start on Omeprazole 20mg daily Needs repeat EGD in 3 months Plan to transition to p.o. antibiotics upon discharge to complete 10-day course Pain control Bowel regimen to prevent constipation Appreciate surgery/GI input Monitor for postop anemia Needs follow-up with surgery/GI upon discharge Tolerating diet Elevated total bilirubin ABD USD: No biliary ductal dilatation status post cholecystectomy. 5.5 x 2.7 cm hypoechoic abnormality within the cholecystectomy bed. While nonspecific, this favors a hematoma. S/P EUS-- as above Monitor LFTs Appreciate GI input (2) Hypertensive heart disease: Continue lisinopril, terazosin, Coreg Clonidine as needed Monitor blood pressure (3) Dyslipidemia: On Crestor (4) Diabetes mellitus, type 2: Continue Lantus, insulin sliding scale Monitor blood glucose levels (5) Status post cardiac pacemaker procedure: (6) Patient is Rastafari: DVT Px: SCDs for now Code Status Full Code Disposition: Plan to discharge home when stable Subjective Patient is seen and examined at bedside Patient had EUS today Had BM overnight Requested for pacemaker interrogation today Discussed with GI today Abd pain is controlled Denies any chest pain, shortness of breath, dizziness, nausea Review of Systems Review of Systems: All systems reviewed & are unremarkable except as noted in HPI & below Physical Exam Physical Exam: Physical Exam: Vitals signs as noted above General Appearance:Moderately built and nourished, no apparent distress Head: normocephalic, Atraumatic Eyes: normal inspection, EOMI Neck: supple, Trachea midline Respiratory/Chest: Normal breath sounds, CTA Cardiovascular: S1, S2, No murmur Abdomen/GI:Soft, mild tender, Bowel sounds present, +Surgical site on dressing Extremities/Musculoskelatal:normal inspection, no edema Neurologic/Psych:AAOX3, grossly no focal neurological deficits Skin: normal color, warm Results & Data Vital Signs (Past 12 Hours) Vital Signs Temp Pulse Resp BP BP Pulse Ox 04/17/19 13:59 36.9 C 64 20 202/79 H 98 08/30/19 11:25 36.8 C 69 18 214/84 H 97 04/17/19 06:58 37.1 C 65 20 196/83 H 94 04/17/19 03:00 37.2 C 74 20 183/77 H 94 Laboratory Results Short CBC 04/17/19 Range/Units 05:49 WBC 10.29 (4.8-10.8) K/uL Hgb 11.8 L (14.0-18.0) g/dL Hct 34.8 L (42-52) % Plt Count 126 L (130-400) K/uL BMP 04/17/19 05:49 Sodium 136 Potassium 3.5 Chloride 103 Carbon Dioxide 27 BUN 12 Creatinine 0.88 Glucose 127 H Calcium 8.5 Liver Function 04/17/19 Range/Units 05:49 Total Bilirubin 1.9 H (0.2-1) mg/dl AST 21 (15-37) U/L ALT 24 (12-78) U/L Alkaline Phosphatase 55 (45-117) U/L Albumin 2.8 L (3.4-5.0) gm/dl
[2019-04-17] MEDS ORDERED: LABETALOL HCL IV 5 MG/ML 20ML IV ONE (15:08)
[2019-04-17] MEDS ORDERED: HydrALAZINE HCL 20 MG/ML VIAL IV ONE ×2 (15:21→15:41)
[2019-04-17] MEDS ORDERED: HydrALAZINE HCL 20 MG/ML VIAL ONE (15:28)
--- NOTE | 2019-04-17 16:21 | Anesthesiology Progress Note ---
Date of Service April 17, 2019 Anesthesia Post Procedure Vital Signs Vital Signs: Temp Pulse Pulse Resp BP BP Pulse Ox 04/17/19 16:00 36.8 C 72 20 187/74 H 97 04/17/19 15:55 36.2 C L 69 14 178/72 H 97 04/17/19 15:50 67 14 171/86 H 96 04/17/19 15:45 68 16 173/74 H 97 04/17/19 15:40 67 16 190/74 H 96 04/17/19 15:30 60 16 188/76 H 96 04/17/19 15:20 60 14 200/77 H 96 04/17/19 15:10 60 14 199/78 H 96 04/17/19 15:00 61 16 203/85 H 98 04/17/19 14:54 36.2 C L 71 16 153/106 H 99 04/17/19 13:59 36.9 C 64 20 202/79 H 98 04/17/19 11:25 36.8 C 69 18 214/84 H 97 04/17/19 06:58 37.1 C 65 20 196/83 H 94 04/17/19 03:00 37.2 C 74 20 183/77 H 94 04/16/19 23:15 37.6 C H 70 20 194/81 H 95 04/16/19 19:00 37.0 C 77 20 183/74 H 96 Pain Intensity Bilateral Abdomen: Pain Intensity: 2 Transfer of Care Handoff Completed per policy Notes Mental Status: alert / awake / arousable and participated in evaluation Patient Amnestic to Procedure: Yes Nausea / Vomiting: adequately controlled Pain: adequately controlled Airway Patency, RR, SpO2: stable & adequate BP & HR: stable & adequate Hydration State: stable & adequate Anesthetic Complications: no major complications apparent and Pt Satisfied with anesthetic care
[2019-04-17] MEDS ORDERED: FAMOTIDINE 20 MG TAB PO ONE (16:45)
[2019-04-17] MEDS: ACETAMINOPHEN 325 MG TAB PO PRN (20:34)
[2019-04-17] MEDS: ROSUVASTATIN CALCIUM 20 MG TAB PO SCH (20:35)
[2019-04-18] MEDS: PIPERACILLIN/TAZOBACTAM 3.375 GM in DEXTROSE 5% 100 ML IV SCH ×2 (00:08→08:44)
[2019-04-18] MEDS ORDERED: HydrALAZINE HCL 20 MG/ML VIAL IV ONE (02:41)
[2019-04-18] MEDS ORDERED: LISINOPRIL 40 MG TAB PO SCH (03:45)
[2019-04-18] MEDS ORDERED: CARVEDILOL 25 MG TAB PO SCH (03:45)
[2019-04-18] MEDS: ALPRAZolam 0.25 MG TABLET PO PRN (03:58)
[2019-04-18] MEDS ORDERED: TERAZOSIN HCL 5 MG CAP PO SCH (06:00)
[2019-04-18] MEDS ORDERED: TERAZOSIN HCL 1 MG CAP PO SCH (06:00)
[2019-04-18] MEDS ORDERED: HydrALAZINE HCL 20 MG/ML VIAL ONE (06:06)
[2019-04-18 06:29] LABS: Hematocrit (blood only) 33.9 % (42-52); Hemoglobin 11.4 g/dL (14.0-18.0); Mean Corpuscular Hemoglobin 28.6 pg (25-34); Mean Corpuscular Hgb Conc 33.6 g/dL (32-36); Mean Corpuscular Volume 85.2 fL (80-100); Mean Platelet Volume 10.1 fL (7.4-10.4); Platelet Count 157 K/uL (130-400); RDW Coefficient of Variation 13.2 % (11.5-14.5); RDW Standard Deviation 41.5 fL (36.4-46.3); Red Blood Count 3.98 M/uL (4.7-6.1); White Blood Count 7.51 K/uL (4.8-10.8)
[2019-04-18 06:56] LABS: Albumin Level 2.9 gm/dl (3.4-5.0); BUN Creatinine Ratio 9.4 (10-20); Calcium 8.5 mg/dl (8.5-10.1); Est GFR (African American) 89.9; Est GFR (Non-African American) 77.6; Potassium 3.6 mmol/L (3.5-5.1)
[2019-04-18 06:59] LABS: Albumin Globulin Ratio 0.8 (0.9-2); Bilirubin,Total 1.8 mg/dl (0.2-1); Globulin 3.8 gm/dl (2.5-4.0); Total Protein 6.7 gm/dl (6.4-8.2)
[2019-04-18] MEDS ORDERED: AMLODIPINE BESYLATE 5 MG TAB PO ONE (07:30)
[2019-04-18] MEDS ORDERED: Nursing to Pharmacy Communication ONE (08:07)
[2019-04-18] MEDS: INSULIN ASPART 100 UNITS/ML 3 ML PEN SC SCH (08:27)
[2019-04-18] MEDS ORDERED: ALPRAZolam 0.25 MG TABLET PO ONE (08:30)
[2019-04-18] MEDS: POTASSIUM CHLORIDE 10 MEQ TABCR PO SCH (08:35)
[2019-04-18] MEDS: DOCUSATE SODIUM 100 MG CAP PO SCH (08:35)
[2019-04-18] MEDS: ASPIRIN 81 MG ECTAB PO SCH (08:35)
[2019-04-18] MEDS ORDERED: INSULIN GLARGINE SOLOSTAR 100 UNITS/ML 3 ML PEN SC ONE (09:00)
[2019-04-18] MEDS ORDERED: PANTOprazole 40 MG TAB PO SCH (09:00)
--- NOTE | 2019-04-18 09:31 | Hospitalist Progress Note ---
Date of Service April 18, 2019 Assessment & Plan (1) Acute cholecystitis: Acute cholecystitis S/P laparoscopic cholecystectomy POD #3 Continue IV Zosyn Day #4 S/P EUS:Esophagitis. Diffuse gastritis with aphthous ulcerations. 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 40 mm hematoma in region of gallbladder fossa. 5 mm common bile duct without evidence of retained common bile duct stones Started on PPI Needs repeat EGD in 3 months Plan to transition to p.o. antibiotics upon discharge to complete 10-day course Pain control Bowel regimen to prevent constipation Appreciate surgery/GI input Monitor for postop anemia Needs follow-up with surgery/GI upon discharge Tolerating diet Elevated total bilirubin ABD USD: No biliary ductal dilatation status post cholecystectomy. 5.5 x 2.7 cm hypoechoic abnormality within the cholecystectomy bed. While nonspecific, this favors a hematoma. S/P EUS-- as above Monitor LFTs Appreciate GI input Bilirubin trending down (2) Hypertensive heart disease: Continue lisinopril, terazosin, Coreg Added Amlodipine for better BP control Clonidine as needed Monitor blood pressure (3) Dyslipidemia: On Crestor (4) Diabetes mellitus, type 2: Continue Lantus, insulin sliding scale Monitor blood glucose levels (5) Status post cardiac pacemaker procedure: (6) Patient is Presybeterian: DVT Px: SCDs for now Code Status Full Code Disposition: Plan to discharge home today Subjective Patient is seen and examined at bedside Doing much better today Eager to get discharged No new complaints Denies Abd pain today Also denies any chest pain, shortness of breath, dizziness, nausea BP better Bilirubin trending down Review of Systems Review of Systems: All systems reviewed & are unremarkable except as noted in HPI & below Physical Exam Physical Exam: Physical Exam: Vitals signs as noted above General Appearance:Moderately built and nourished, no apparent distress Head: normocephalic, Atraumatic Eyes: normal inspection, EOMI Neck: supple, Trachea midline Respiratory/Chest: Normal breath sounds, CTA Cardiovascular: S1, S2, No murmur Abdomen/GI:Soft, non tender, Bowel sounds present, +Surgical site on dressing Extremities/Musculoskelatal:normal inspection, no edema Neurologic/Psych:AAOX3, grossly no focal neurological deficits Skin: normal color, warm Results & Data Vital Signs (Past 12 Hours) Vital Signs Temp Pulse Pulse Resp BP BP Pulse Ox 04/18/19 09:23 179/74 H 04/18/19 07:00 36.7 C 85 20 208/90 H 96 04/18/19 05:29 207/65 H 203/82 H 04/18/19 05:00 172/80 H 04/18/19 03:39 37.0 C 67 20 194/77 H 95 04/17/19 23:00 37.1 C 62 20 167/74 H 96 04/17/19 21:30 37.0 C 89 16 180/79 H Laboratory Results Short CBC 04/18/19 Range/Units 05:58 WBC 7.51 (4.8-10.8) K/uL Hgb 11.4 L (14.0-18.0) g/dL Hct 33.9 L (42-52) % Plt Count 157 (130-400) K/uL BMP 04/18/19 05:58 Sodium 136 Potassium 3.6 Chloride 100 Carbon Dioxide 31 BUN 9 Creatinine 0.96 Glucose 172 H Calcium 8.5 Liver Function 04/18/19 Range/Units 05:58 Total Bilirubin 1.8 H (0.2-1) mg/dl AST 15 (15-37) U/L ALT 19 (12-78) U/L Alkaline Phosphatase 66 (45-117) U/L Albumin 2.9 L (3.4-5.0) gm/dl
--- NOTE | 2019-04-18 09:32 | Discharge Summary ---
Date of Service April 18, 2019 Admission HPI Per Admitting Provider 73 yo male c PMH UGI Bleed, Pacer, Vtach, Atrial Tach, HTN, HLD, DM II, and HTN presents to ER this AM c epigastric that started yesterday at 1700. Abd pain. The pain is constant and radiates to his back. The patient explains that he did not feel better or worse when he was resting or sitting up. The patient reports having TUMS however this did not help. The patient denies chest pain and shortness of breath. The patient denies eating strange foods or a change in his medication. The patient states that he had a stomach ulcer 10 years ago but has not had a scope in years. Dr Mcclure was consulted from the ER and I will have Cards come by for a pre-op eval. 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 Primary Care Provider: Srini Hinkle MD Admission Exam Per Admitting Provider Physical Exam Gen-AAO x 3, NAD, Afebrile, Obese, Poor dentition Head-NCAT, EOMI, PERRLA, Anicteric Sclera, No Posterior Pharyngeal Erythema Neck-Supple, No JVD, No Thyromegaly, No Masses, No LAD, No Bruits Lungs-Clear to Auscultation Bilaterally, No Rales, No Rhonchi, No Wheezing, No Crepitus Chest-No S4, +S1, +S2, No S3, No Murmurs, No Rubs, No Gallops, No Ectopy Abdomen-Soft, Bowel Sounds Present, Tender, Non Distended, No Hepatomegaly, No Splenomegaly, No Palpable Masses, No Rebound, No Rigidity, No Guarding Musculoskeletal-Full Range of Motion Bilaterally, No CVAT Extremities-No Cyanosis, No Clubbing, No Edema Nuero-Cranial Nerves II-XII grossly intact, Motor WNL, DTRs WNL, Strength WNL, Non Focal Psych-Normal Mood Principal Diagnosis Discharge Information Discharge Diagnosis Acute cholecystitis Esophagitis, diffuse gastritis Discharge Goals Decrease discomfort,Improve disease control, Improve function Discharge Activity Limitations Per instructions/follow-up Discharge Data Allergies Allergy/AdvReac Type Severity Reaction Status Date / Time No Known Allergies Allergy Unverified 04/14/19 02:29 Consultations 04/14/19 07:04 Consult General Surgery Stat 04/14/19 07:12 ED Decision to Admit Stat 04/14/19 09:16 Consult Cardiology Routine Consult General Surgery Routine 04/16/19 10:54 Consult Gastroenterology Routine Procedures Performed Operation Date: 04/15/19 07:15 Actual Procedures p Laparoscopic Cholecystectomy(Not Applicable) - Lori Mcclure MD Operation Date: 04/17/19 14:40 Actual Procedures p Upper Endoscopic Ultrasonography(Not Applicable) - Del Hanley s Esophagogastroduodenoscopy with biopsies(Not Applicable) - Del Hanley CT ABD: 1. Cholelithiasis with mild gallbladder wall thickening and adjacent infiltration. Although nondistended, the findings raise the possibility of acute cholecystitis. Findings could be correlated with right upper quadrant ultrasound. 2. Extensive colonic diverticulosis without evidence for acute diverticulitis. Gallbladder ultrasound: Cholelithiasis with gallbladder wall thickening. Therefore, these findings likely represent with acute cholecystitis. HIDA: 1. Nonvisualization of the gallbladder suggestive of acute cholecystitis. 2. Accumulation of contrast overlying the mid common duct felt to represent activity within a duodenal sweep diverticulum. 3. Normal flow of isotope to the small bowel. ABD USD: 1. No biliary ductal dilatation status post cholecystectomy. 2. 5.5 x 2.7 cm hypoechoic abnormality within the cholecystectomy bed. While nonspecific, this favors a hematoma. EGD: Impression: - Evidence of a cholecystectomy. - There was no evidence of significant pathology in the left lobe of the liver. - Endosonographic images of the left adrenal gland were unremarkable. - There was no sign of significant pathology in the pancreatic body, pancreatic tail, pancreatic neck and main pancreatic duct. - A cystic lesion was seen in the pancreatic head. - There was no sign of significant pathology in the common bile duct. - Perihepatic hematoma. - No specimens collected. Recommendation: - [facility]. - Advance diet as tolerated. - Perform CT scan (computed tomography) of the abdomen with contrast in 3 months for follow-up of the pancreatic cyst. Ordered Studies 04/14/19 02:36 CT abd pelvis IV con only Urgent 04/14/19 04:47 US gallbladder Urgent 04/16/19 11:44 US abdomen limited Routine 04/17/19 14:02 US upper EUS PACS images Routine Hospital Course (1) Acute cholecystitis: Acute cholecystitis S/P laparoscopic cholecystectomy POD #3 Continue IV Zosyn Day #4 S/P EUS:Esophagitis. Diffuse gastritis with aphthous ulcerations. 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 40 mm hematoma in region of gallbladder fossa. 5 mm common bile duct without evidence of retained common bile duct stones Started on PPI Needs repeat EGD in 3 months Plan to transition to p.o. antibiotics upon discharge to complete 10-day course Pain control Bowel regimen to prevent constipation Appreciate surgery/GI input Monitor for postop anemia Needs follow-up with surgery/GI upon discharge Tolerating diet Elevated total bilirubin ABD USD: No biliary ductal dilatation status post cholecystectomy. 5.5 x 2.7 cm hypoechoic abnormality within the cholecystectomy bed. While nonspecific, this favors a hematoma. S/P EUS-- as above Monitor LFTs Appreciate GI input Bilirubin trending down (2) Hypertensive heart disease: Continue lisinopril, terazosin, Coreg Added Amlodipine for better BP control Clonidine as needed Monitor blood pressure (3) Dyslipidemia: On Crestor (4) Diabetes mellitus, type 2: Continue Lantus, insulin sliding scale Monitor blood glucose levels (5) Status post cardiac pacemaker procedure: (6) Patient is Presybeterian: DVT Px: SCDs for now Code Status Full Code Disposition: Plan to discharge home today Total Time Total Time Spent Total Time Spent (In Minutes): 40 minutes Total Time Includes: Examination of the Patient, Discharge Planning, Medication Reconciliation, Communication With Other Providers and Other Discharge Plan Discharge Items Patient Disposition: Home - Self-Care Reason For Visit: ACUTE CHOLECYSTITIS Discharge Diagnosis: Acute cholecystitis Esophagitis, diffuse gastritis Condition: Good Discharge Goals: Decrease discomfort, Improve disease control and Improve function Activity: Per 'Additional Instructions' section Exercise/Sports: Gradually increase as tolerated Non-emergency contact: Primary Care Provider and Surgeon Call non-emergency contact if: you have any medication questions, your symptoms worsen, your pain is not controlled, your pain is worsening, your pain is unusual for you, your pain is concerning for you and you have a fever Follow-up/Referrals: Srini Hinkle MD [Primary Care Provider] - Diet: Carb Consistent or DM2 and Heart Healthy Addtl Provider Instructions: Follow-up with Dr. Kelley for primary care on April 23, 2019 at 9:25 AM Follow-up with his surgeon Dr. Armstrong on April 29, 2019 at 3:30pm Follow-up with your systems technologist Dr. Hanley in 3 months for repeat upper endoscopy Complete the antibiotic course as prescribed He was started on omeprazole 20 mg daily as recommended by her gastroentero logist Seek immediate medical attention if your symptoms reoccur or worsen Surgical discharge instructions: - No heavy lifting over 20 pounds for 3-4 weeks - No strenuous activity until cleared by surgeon - No submerging incisions underwater for 2 weeks (bathing, swimming, or hot tubs) however you may shower. Allow water to run over incisions and pat dry. Remove outer dressings prior to showering and replace with small dressing afterwards. Leave steri strips on incisions for 7 days from your surgery and then remove. They may fall off on their own that is okay - May take extra strength Tylenol or Ibuprofen as needed for mild pain 650 mg of Tylenol every 6 hours 600 mg of Ibuprofen every 6 hours - Walking and light activity is encouraged daily to prevent blood clots from forming in your legs - Take entire course of antibiotics as prescribed - Follow-up in surgical office in 1-2 weeks, please call office at [phone] to make an appointment. Prescriptions: New docusate sodium 100 mg Capsule 100 mg PO BID PRN (Reason: constipation) 15 Days Qty: 30 RF: 0 polyethylene glycol 3350 [Miralax] 17 gram Powder In Packet 17 g PO DAILY PRN (Reason: constipation) 15 Days Qty: 15 RF: 0 amoxicillin-pot clavulanate [Augmentin] 500-125 mg tablet 1 tab PO BID Qty: 14 RF: 0 omeprazole 20 mg capsule,delayed release(DR/EC) 20 mg PO DAILY Qty: 30 RF: 2 amlodipine 5 mg tablet 5 mg PO DAILY Qty: 30 RF: 0 Continued terazosin 5 mg Capsule 5 mg PO DAILY RF: 0 potassium chloride 10 mEq Capsule, Extended Release 10 meq PO DAILY RF: 0 lisinopril-hydrochlorothiazide 20-12.5 mg Tablet 2 tab PO DAILY RF: 0 aspirin 81 mg Tablet,Delayed Release (Dr/Ec) 81 mg PO DAILY RF: 0 alprazolam 0.25 mg Tablet 0.25 mg PO TID PRN (Reason: Anxiety) RF: 0 clonidine HCl 0.1 mg Tablet 0.1 mg PO Q6H PRN (Reason: high b/p/anxiety) RF: 0 rosuvastatin 20 mg Capsule, Sprinkle 20 mg PO HS RF: 0 carvedilol 25 mg Tablet 25 mg PO BID RF: 0 Novolog Flexpen U-100 Insulin 100 unit/mL (3 mL) Insulin Pen 5 unit SUBCUT BID RF: 0 Lantus Solostar U-100 Insulin 24 units subcut BID RF: 0 Stand-Alone Forms: Call Back Authorization, [facility] Discharge Orders: Discharge Order (Routine); Ordered 04/18/19 Ordered By: Azar Nixon Admission Data Admit Date/Time: 04/14/19 07:40 Attending Provider: Azar Nixon Admit Provider: Scout Torres Primary Care Provider: Srini Hinkle Other Providers: Lori Mcclure ; Scout Torres ; Farooq James ; Daniel Tomlinson ; Kobe Em ; Leandro Carmona ; Micha Weiner ; John Encinas ; Theresa Perkins ; Joslyn Omalley ; Kurt Reeves ; Leydi Thomas ; Socorro Ghotra ; Juan Alberto Martinez ; Del Hanley ; Romulo Conrad ; Martine Mar ; Lon Quiroga ; Remy Harmon ; Stella Olvera ; Karol Carter ; Penelope Cantu ; Yary Ulloa ; Lia Grewal Service: Telemetry Medical Other Interventions: Discharge Summary Assessment (RN) Last Done: 04/18/19 10:17 Pending Studies at Discharge: Yes (Gallbladder pathology, will be reviewed at follow-up visit) DC Date/Time DO NOT enter until pt leaves facility: 04/18/19 11:11
[2019-04-18] MEDS ORDERED: INSULIN GLARGINE SOLOSTAR 100 UNITS/ML 3 ML PEN SC SCH (16:30)
[2019-04-19] MEDS ORDERED: AMLODIPINE BESYLATE 5 MG TAB PO SCH (09:00)
== END 2019-04-18 11:11 | disposition home or self-care (01) | DRG 419 ==
LOC: ED 01:58 → SUATTDRO 07:40 → 3W 07:40 → 2W 11:07